=== PATIENT | male | born 1945 | race Caucasian/White ===

== ENCOUNTER → 2016-09-17 | Outpatient (CLI) | payer OTHER ==
[~2016-09-17] MED LIST: ACID CONTROL20 MG PO; AMOXICILLIN 50500 M1 PO; ASPIR 8181 MG PO; ASPIRIN EC81 M1 PO; ATORVASTATIN CA40 MG PO; BAYER CHEWABLE81 MG PO; CARDURA2 MG PO; CLOTRIMAZOLE-BE15 GM TP; CLOTRIMAZOLE10 GM TOP; COLACE100 MG PO; COUMADIN 3 MG TA3 M1 PO; COUMADIN 4 MG TA4 M1 PO; COUMADIN 5 MG TA5 M1 PO; DYAZIDE PO; FLOMAX0.4 MG PO; GLUCOPHAGE1000 MG PO; GLYBURIDE 5 MG T5 M1 PO; GLYCOLAX POWDER17 G1 PO; GLYCOLAX255 GM PO; HYDROCODON-ACE1 EAC9 PO; HYDROCODONE-APA1 TA1 PO; KEFLEX500 MG PO; KLOR-CON 1010 MEQ PO; LACTINEX CHEWA1 EACH PO; LANTUS SUBQ; LANTUS100 UNIT/M SUBQ; LASIX 20 MG TAB20 MG PO; LEVEMIR SUBQ; LIORESAL 10 MG10 MG PO; LIPITOR 20 MG T20 M1 PO; LISINOPRIL10 MG PO; LISINOPRIL20 MG PO; LOVENOX INJ; METFORMIN HCL500 MG PO; MUCINEX TA600 MG/TA2 PO; NAPROSYN500 MG PO; NORCO 5-325 TA1 EACH PO; NOVOLOG100 UNIT/1 SUBQ; NYAMYC15 GM TOP; OXYCODONE HCL 55 MG PO; PACERONE 200 M200 M1 PO; PAIN RELIEVER325 MG PO; PEPCID20 MG PO; PERCOCET PO; PLAVIX 75 MG TA75 MG PO; PREDNISONE 20 M20 MG PO; PROSCAR 5MG TABL5 MG PO; PROTONIX40 M1 PO; SENOKOT-S1 TA1 PO; SIMVASTATIN40 MG PO; TESSALON PERLE100 MG PO; TESTOSTERO200 MG/1 M IM; TYLENOL325 MG PO; VITAMIN D1000 UNI1 PO; VITAMIN D32000 UNIT PO; ZANTAC 150MG T150 M1 PO; ZANTAC 150MG T150 MG PO; [UNRECOGNIZED DRUG - OTHER] TOP
== END ==
LOC: HYPER 02-11 11:53
DX: L89.893 Pressure ulcer of other site, stage 3 (principal); E11.621 Type 2 diabetes mellitus with foot ulcer; L97.511 Non-pressure chronic ulcer of other part of right foot limited to breakdown of skin; E11.40 Type 2 diabetes mellitus with diabetic neuropathy, unspecified; E11.51 Type 2 diabetes mellitus with diabetic peripheral angiopathy without gangrene; E11.22 Type 2 diabetes mellitus with diabetic chronic kidney disease; I12.9 Hypertensive chronic kidney disease with stage 1 through stage 4 chronic kidney disease, or unspecified chronic kidney disease; N18.9 Chronic kidney disease, unspecified; I48.91 Unspecified atrial fibrillation; E78.5 Hyperlipidemia, unspecified; J44.9 Chronic obstructive pulmonary disease, unspecified; Z86.19 Personal history of other infectious and parasitic diseases; Z79.4 Long term (current) use of insulin; Z79.84 Long term (current) use of oral hypoglycemic drugs; Z86.73 Personal history of transient ischemic attack (TIA), and cerebral infarction without residual deficits; Z87.01 Personal history of pneumonia (recurrent); Z89.421 Acquired absence of other right toe(s); Z87.891 Personal history of nicotine dependence; Z72.89 Other problems related to lifestyle

== ENCOUNTER → 2016-10-15 | Outpatient (CLI) | payer OTHER | LOC: HYPER 06:50 | DX: L89.893 Pressure ulcer of other site, stage 3 (principal); E11.621 Type 2 diabetes mellitus with foot ulcer; L97.511 Non-pressure chronic ulcer of other part of right foot limited to breakdown of skin; E11.51 Type 2 diabetes mellitus with diabetic peripheral angiopathy without gangrene; I48.91 Unspecified atrial fibrillation; E78.5 Hyperlipidemia, unspecified; E11.40 Type 2 diabetes mellitus with diabetic neuropathy, unspecified; J44.9 Chronic obstructive pulmonary disease, unspecified; E11.22 Type 2 diabetes mellitus with diabetic chronic kidney disease; I12.9 Hypertensive chronic kidney disease with stage 1 through stage 4 chronic kidney disease, or unspecified chronic kidney disease; N18.9 Chronic kidney disease, unspecified; Z79.4 Long term (current) use of insulin; Z79.84 Long term (current) use of oral hypoglycemic drugs; Z86.73 Personal history of transient ischemic attack (TIA), and cerebral infarction without residual deficits; Z87.01 Personal history of pneumonia (recurrent); Z86.19 Personal history of other infectious and parasitic diseases; Z89.421 Acquired absence of other right toe(s); Z87.891 Personal history of nicotine dependence; Z72.89 Other problems related to lifestyle ==

== ENCOUNTER → 2016-11-12 | Outpatient (CLI) | payer OTHER | LOC: HYPER 07:04 | DX: E11.621 Type 2 diabetes mellitus with foot ulcer (principal); L97.511 Non-pressure chronic ulcer of other part of right foot limited to breakdown of skin; E11.51 Type 2 diabetes mellitus with diabetic peripheral angiopathy without gangrene; L72.8 Other follicular cysts of the skin and subcutaneous tissue; E11.21 Type 2 diabetes mellitus with diabetic nephropathy; E11.22 Type 2 diabetes mellitus with diabetic chronic kidney disease; I12.9 Hypertensive chronic kidney disease with stage 1 through stage 4 chronic kidney disease, or unspecified chronic kidney disease; N18.9 Chronic kidney disease, unspecified; Z79.4 Long term (current) use of insulin; Z79.84 Long term (current) use of oral hypoglycemic drugs; I48.91 Unspecified atrial fibrillation; Z86.73 Personal history of transient ischemic attack (TIA), and cerebral infarction without residual deficits; J44.9 Chronic obstructive pulmonary disease, unspecified; Z86.19 Personal history of other infectious and parasitic diseases; Z89.421 Acquired absence of other right toe(s); Z87.891 Personal history of nicotine dependence; Z72.89 Other problems related to lifestyle ==

== ENCOUNTER 2016-12-06 12:14 | Emergency (ER) | payer OTHER ==
[~2016-12-06] VITALS: Ht 190.5 cm; Wt 115.7 kg
--- NOTE | ~2016-12-06 | EKG ---
[address] [place] [address] ELECTROCARDIOGRAM REPORT Name: KATIE HAUSER [id number] Admission: 12/06/16 Attend Phys: Discharge: 12/06/16 Date of : 47 Report #: [id number] THIS REPORT FOR: //name// [facility] ED Test Date: 2016-12-06 Test Time: 12:34:20 Pat Name: KATIE HAUSER Department: Room: Gender: Site Controller: ALEX : 1945 Requested By: Milana Ricketts Order Number: [id number] MD: Amanuel Butler Measurements Intervals Hallie Rate: 109 P: -62 ME: 177 QRS: -32 QRSD: 98 T: 39 QT: 330 QTc: 445 Interpretive Statements Sinus or ectopic atrial tachycardia Left axis deviation Abnormal R-wave progression, early transition Minimal ST depression, anterior leads Compared to ECG 10/02/2015 15:29:47 ST (T wave) deviation now present Sinus rhythm no longer present First degree AV block no longer present Electronically Signed On 12-06-2016 15:23:55 CDT by Amanuel Butler [email or web address] <ELECTRONICALLY SIGNED> By: Amanuel Butler MD 12/06/16 1523 1234 1234 Amanuel Butler MD /EPI
[2016-12-06 13:38] LABS: HEMATOCRIT 44.2 % (42.0-52.0); HEMOGLOBIN 14.2 gm/dL (14.0-18.0); MCH 27.3 pg (26.0-34.0); MCV 85.2 fL (80.0-100.0); PLATELET COUNT 182 thou/uL (150-400); RBC 5.19 mil/uL (4.50-6.00); RDW 15.9 % (10.5-14.5); WBC 12.9 thou/uL (4.0-11.0)
[2016-12-06 13:44] LABS: ANION GAP 11 mmol/L (7-16); BUN 25 mg/dL (7-18); CALCIUM 9.8 mg/dL (8.5-10.1); CHLORIDE 101 mmol/L (98-107); CO2 27 mmol/L (21-32); CREATININE 1.3 mg/dL (0.7-1.3); GLUCOSE 274 mg/dL (74-106); POTASSIUM 4.6 mmol/L (3.5-5.1); SODIUM 139 mmol/L (136-145)
[2016-12-06 13:47] LABS: MANUAL DIFF YES
[2016-12-06 13:53] LABS: TROPONIN-I < 0.04 ng/mL (<0.04-0.07)
[2016-12-06 14:10] LABS: ABSOLUTE NEUTROPHILS 10.6 thou/uL (1.4-8.2); TOTAL CELL COUNT 100
== END 2016-12-06 15:15 | disposition home or self-care (01) ==
LOC: ER 12:14
PROVIDERS: Emergency Medicine
DX: I95.1 Orthostatic hypotension (principal); R55 Syncope and collapse; I10 Essential (primary) hypertension; E78.00 Pure hypercholesterolemia, unspecified; I48.91 Unspecified atrial fibrillation; M19.90 Unspecified osteoarthritis, unspecified site; E11.9 Type 2 diabetes mellitus without complications; E11.40 Type 2 diabetes mellitus with diabetic neuropathy, unspecified; E11.51 Type 2 diabetes mellitus with diabetic peripheral angiopathy without gangrene; M86.60 Other chronic osteomyelitis, unspecified site; F10.99 Alcohol use, unspecified with unspecified alcohol-induced disorder; Z86.11 Personal history of tuberculosis; Z79.4 Long term (current) use of insulin; Z79.01 Long term (current) use of anticoagulants; Z86.73 Personal history of transient ischemic attack (TIA), and cerebral infarction without residual deficits; Z87.891 Personal history of nicotine dependence

== ENCOUNTER → 2016-12-24 | Outpatient (CLI) | payer OTHER | LOC: HYPER 07:05 | DX: E11.621 Type 2 diabetes mellitus with foot ulcer (principal); L89.893 Pressure ulcer of other site, stage 3; L97.511 Non-pressure chronic ulcer of other part of right foot limited to breakdown of skin; E11.51 Type 2 diabetes mellitus with diabetic peripheral angiopathy without gangrene; Z79.4 Long term (current) use of insulin; E11.21 Type 2 diabetes mellitus with diabetic nephropathy; Z79.84 Long term (current) use of oral hypoglycemic drugs; E11.22 Type 2 diabetes mellitus with diabetic chronic kidney disease; I12.9 Hypertensive chronic kidney disease with stage 1 through stage 4 chronic kidney disease, or unspecified chronic kidney disease; N18.9 Chronic kidney disease, unspecified; E78.5 Hyperlipidemia, unspecified; Z87.01 Personal history of pneumonia (recurrent); Z86.73 Personal history of transient ischemic attack (TIA), and cerebral infarction without residual deficits; Z87.891 Personal history of nicotine dependence ==

== ENCOUNTER 2019-09-22 11:59 | Emergency (ER) | payer OTHER ==
[~2019-09-22] VITALS: Ht 198.1 cm; Wt 134.7 kg
[2019-09-22 15:16] LABS: ABSOLUTE NEUTROPHILS 4.7 thou/uL (1.4-8.2); EOSINOPHILS 4.1 % (0.0-3.0); HEMATOCRIT 39.9 % (42.0-52.0); HEMOGLOBIN 12.9 gm/dL (14.0-18.0); LYMPHOCYTES 33.5 % (24.0-44.0); MCH 28.5 pg (26.0-34.0); MCHC 32.3 g/dL (28.0-37.0); MCV 88.1 fL (80.0-100.0); MONOCYTES 8.2 % (1.0-8.0); PLATELET COUNT 205 thou/uL (150-400); POLYS 53.2 % (36.0-66.0); RBC 4.53 mil/uL (4.50-6.00); RDW 14.9 % (10.5-14.5); WBC 8.7 thou/uL (4.0-11.0)
[2019-09-22] MEDS ORDERED: BACTRIM DS TAB1 EAC1 PO (15:28)
[2019-09-22 15:39] VITALS: BP 154/81
== END 2019-09-22 15:39 | disposition home or self-care (01) ==
LOC: ER 11:59
PROVIDERS: Nurse Practitioner
DX: L03.115 Cellulitis of right lower limb (principal); E11.621 Type 2 diabetes mellitus with foot ulcer; L97.519 Non-pressure chronic ulcer of other part of right foot with unspecified severity; E11.40 Type 2 diabetes mellitus with diabetic neuropathy, unspecified; E11.51 Type 2 diabetes mellitus with diabetic peripheral angiopathy without gangrene; E78.5 Hyperlipidemia, unspecified; I10 Essential (primary) hypertension; I48.91 Unspecified atrial fibrillation; M19.90 Unspecified osteoarthritis, unspecified site; Z86.73 Personal history of transient ischemic attack (TIA), and cerebral infarction without residual deficits; Z79.899 Other long term (current) drug therapy; Z79.4 Long term (current) use of insulin; Z79.82 Long term (current) use of aspirin; Z79.01 Long term (current) use of anticoagulants; Z88.8 Allergy status to other drugs, medicaments and biological substances; Z87.891 Personal history of nicotine dependence; Z89.421 Acquired absence of other right toe(s)

== ENCOUNTER → 2019-10-04 | Outpatient (CLI) | payer OTHER ==
[~2019-10-04] MED LIST changes: +BACTRIM DS TAB1 EAC1 PO; +CARVEDILOL3.125 MG PO; +ELIQUIS5 MG PO; +NOVOLIN N100 UNIT/1 SUBQ; +NOVOLIN R100 UNIT/1 SUBQ
== END ==
LOC: HYPER 08:59 → CAT 08:59 → HYPER 15:22
PROVIDERS: ATTEND Emergency Medicine Emergency Medical Services
DX: E11.621 Type 2 diabetes mellitus with foot ulcer (principal); L97.514 Non-pressure chronic ulcer of other part of right foot with necrosis of bone; L84 Corns and callosities; L60.3 Nail dystrophy; E11.40 Type 2 diabetes mellitus with diabetic neuropathy, unspecified; E11.51 Type 2 diabetes mellitus with diabetic peripheral angiopathy without gangrene; E78.5 Hyperlipidemia, unspecified; I48.91 Unspecified atrial fibrillation; I10 Essential (primary) hypertension; J44.9 Chronic obstructive pulmonary disease, unspecified; M20.41 Other hammer toe(s) (acquired), right foot; M20.42 Other hammer toe(s) (acquired), left foot; M24.571 Contracture, right ankle; Z86.73 Personal history of transient ischemic attack (TIA), and cerebral infarction without residual deficits; Z86.31 Personal history of diabetic foot ulcer; Z79.84 Long term (current) use of oral hypoglycemic drugs; Z87.891 Personal history of nicotine dependence

== ENCOUNTER → 2019-10-05 | Outpatient (CLI) | payer OTHER ==
[~2019-10-05] MED LIST changes: -CARVEDILOL3.125 MG PO; -ELIQUIS5 MG PO; -NOVOLIN N100 UNIT/1 SUBQ; -NOVOLIN R100 UNIT/1 SUBQ
== END ==
LOC: SJCVCIMAG
PROVIDERS: ATTEND Podiatrist Foot & Ankle Surgery
DX: I70.201 Unspecified atherosclerosis of native arteries of extremities, right leg (principal); Z95.820 Peripheral vascular angioplasty status with implants and grafts

== ENCOUNTER 2019-10-12 06:06 | Inpatient (IN) | payer OTHER ==
[~2019-10-12] VITALS: Ht 198.1 cm; Wt 137.4 kg
--- NOTE | ~2019-10-12 | HC ---
[facility] [place] [address] CONSULTATION Name: KATIE HAUSER Room #: 440- ADM IN M.R.#: [id number] Admission: 10/12/19 Attend Phys: Puja Carroll MD Discharge: Date of : 47 Report #: [id number] THIS REPORT FOR: cc: Gerardo Roberts MD, Michael B. MD Smithson, David G. 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 He utilizes an AFO. Primarily utilizing a power wheelchair to get around for longer distances. He has had problems with right fifth metatarsal osteomyelitis and is now status post amputation, 10/12/2019. He is limited to nonweightbearing for approximately 3 weeks. He is on IV antibiotics. We are seeing him in rehabilitation medicine consultation. PAST MEDICAL HISTORY: As noted above. He also has a prior history of hypertension, hyperlipidemia, diabetes mellitus, permanent pacemaker, and peripheral neuropathy. HABITS: No history of tobacco, alcohol or drug abuse. MEDICATIONS: Please see the full medication listing. ALLERGIES: MOTRIN. SOCIAL HISTORY: Lives in a house alone. No steps. There is a ramp to get in. Used a walker for short distances, could transfer back and forth a couple of steps to get in the bed into the wheelchair and has a powered wheelchair. Grandson assists with bathing. REVIEW OF SYSTEMS: Did not offer any current complaints of chest pain, shortness of breath or abdominal discomfort. PHYSICAL EXAMINATION: GENERAL: A 74-year-old white male in no obvious distress. He is alert, pleasant, oriented. HEENT: Appeared to be benign. Cranial nerves were intact. VITAL SIGNS: Temperature 98.5, pulse 70, respirations 16, blood pressure 132/46. He was able to express his wants and needs. EXTREMITIES: Does have some mild residual right upper extremity weakness, probably a grade 4-/5. Right lower extremity has the dressing in place. I was [facility] [address] [place] [address] CONSULTATION Name: KATIE HAUSER Room #: 440-P ADM IN M.R.#: [id number] Admission: 10/12/19 Attend Phys: Puja Carroll MD Discharge: Date of : 47 Report #: [id number] unable to assess his right ankle strength, but he does have the old AFO. He has functional range of motion of the left upper and left lower extremity. Strength is probably a grade 4+/5. He is sit to stand, max assist. ASSESSMENT: A 74-year-old white male with the following problem list: 1. Right fifth metatarsal osteomyelitis, status post amputation on 10/12/[address] Camarena is limited to nonweightbearing right lower extremity. Continues on IV antibiotics. 2. History of cerebrovascular accident ____ with residual right hemiparesis. 3. Hypertension. 4. Diabetes mellitus. 5. Permanent pacemaker. 6. Hyperlipidemia. 7. Peripheral neuropathy. PLAN: Would agree with retirement facility options as you are looking into. He needs another couple of weeks of nursing care and IV antibiotics before he can be considered for a potential weightbearing upgrade by Podiatry depending upon how he heals. Noted to be on meropenem. By: 1147 0111 Frantz Bach MD /nt
[~2019-10-12 06:06] MED LIST changes: +CARVEDILOL3.125 MG PO; +ELIQUIS5 MG PO; +NOVOLIN N100 UNIT/1 SUBQ; +NOVOLIN R100 UNIT/1 SUBQ
[2019-10-12 07:21] LABS: CALCIUM 8.6 mg/dL (8.5-10.1); CREATININE 1.2 mg/dL (0.7-1.3); POTASSIUM 4.3 mmol/L (3.5-5.1)
[2019-10-12 07:27] LABS: ALBUMIN 3.4 g/dL (3.4-5.0); TOTAL BILIRUBIN 0.3 mg/dL (0.2-1.0); TOTAL PROTEIN 6.5 g/dL (6.4-8.2)
[2019-10-12 08:05] VITALS: BP 155/77
[2019-10-12 09:35] VITALS: BP 109/61
[2019-10-12 10:07] LABS: ABSOLUTE NEUTROPHILS 4.6 thou/uL (1.4-8.2); EOSINOPHILS 4.1 % (0.0-3.0); HEMATOCRIT 40.6 % (42.0-52.0); HEMOGLOBIN 13.3 gm/dL (14.0-18.0); LYMPHOCYTES 29.3 % (24.0-44.0); MCH 28.8 pg (26.0-34.0); MCHC 32.8 g/dL (28.0-37.0); MCV 87.6 fL (80.0-100.0); MONOCYTES 8.8 % (1.0-8.0); PLATELET COUNT 170 thou/uL (150-400); POLYS 56.8 % (36.0-66.0); RBC 4.64 mil/uL (4.50-6.00); RDW 14.9 % (10.5-14.5); WBC 8.1 thou/uL (4.0-11.0)
--- NOTE | 2019-10-12 14:46 | NUR ---
assessment: CM REVIEWED CHART AND SPOKE WITH PATIENT. PT WAS ADMITTED FOR A RIGHT GREAT TOE AMPUTATION. PT REPORTS THAT HE LIVES IN A HOUSE ALONE. PT REPORTS THAT HE CURRENTLY HAS [facility] THAT COMES OUT TO ASSIST HIM. CM CONTACTED [facility] AND CONFIRMED THIS HOWEVER THEY STATE PATIENT IS AN [employer] PATIENT AND THEY ARE NO LONGER ACCEPTING [employer] CONTRACTS AND THAT THEY ARE UNABLE TO ACCEPT PATIENT BACK FOR HH SERVICES. PT HAD AMPUTATION TODAY AND IS TO WORK WITH THERAPIES TOMORROW. PT REPORTS HE HAS BEEN TO [facility] IN THE PAST AND PENDING HOW HE DOES WITH THERAPY IS INTERESTED IN [facility]. CM NOTIFIED [facility] IF PATIENT QUALIFIES OTHERWISE IF PATIENT IS NEEDING HH ANOTHER AGENCY WILL HAVE TO BE CONTACTED. PT REPORTS HE HAS A WALKER AND WHEELCHAIR AT HOME AND HIS GRANDSON COMES OVER TO HELP ASSIST HIM WITH SHOWERS. CM WILL CONTINUE TO FOLLOW TO ASSIST NEEDED.
[2019-10-12 15:02] VITALS: BP 106/63
--- NOTE | 2019-10-12 18:58 | NUR ---
Assumed care of pt. from PACU at 1000. There was in issue in communication between Admin. and Medical Staff and pt. was not admitted or moved in computer to unit for 2 hours. Pt. was admitted after problem was resolved. Multiple calls were made at this time by myself to Admin to try to resolve the situation. Pt. food tray was also not delivered until after several calls to dietary as well. Pt. was calm and cooperative throughout the entire process. Fall precautions in place.
[2019-10-12 20:04] VITALS: BP 108/47
--- NOTE | 2019-10-13 02:37 | NUR ---
ASSUMED PT CARE AT APPROX 1900'PT DENIED PAIN SO FAR.DRSG TO HIS R FOOT C/D/I.PT CONT ON IV ABX ORDERED.BG MONITORED .URINAL AT BEDSIDE.PT SLEEPING ON HIS BED AT THIS TIME.FALL PRECAUTIONS IN PLACE,CALL LIGHT WITHIN REACH.
[2019-10-13 04:02] VITALS: BP 101/43
[2019-10-13 07:50] VITALS: BP 107/54
--- NOTE | 2019-10-13 08:00 | EKG ---
[facility] [place] [address] ELECTROCARDIOGRAM REPORT Name: KATIE HAUSER Room #: 440-P ADM IN M.R.#: [id number] Admission: 10/12/19 Attend Phys: Puja Carroll MD Discharge: Date of : 47 Report #: [id number] THIS REPORT FOR: cc: Gerardo Roberts MD, Michael B. MD Lundgren,Anshu Bradshaw MD [facility] ~ THIS REPORT FOR: //name// [facility] Test Date: 2019-10-12 Test Time: 06:52:07 Pat Name: KATIE HAUSER Department: Room: [facility] Gender: M Professor Of Industrial Technology: CALEB : 1945 Requested By: Rachael Mendez Order Number: [id number] MD: Anshu Coffey Measurements Intervals [place] Rate: 70 P: SC: 223 QRS: -52 QRSD: 134 T: 68 QT: 409 QTc: 442 Interpretive Statements Atrial-paced rhythm Left bundle branch block Compared to ECG 12/06/2016 12:34:20 Atrial pacing is now present QRS duration has widened Electronically Signed On 10-13-2019 7:59:58 CDT by Anshu Coffey [email or web address] <ELECTRONICALLY SIGNED> By: Anshu Coffey MD, [facility] 10/13/19 0759 0652 0652 Anshu Coffey MD, [facility] /EPI
--- NOTE | 2019-10-13 14:42 | NUR ---
[facility] INDICATED THEY WOULD ASSESS PT THIS DAY BUT THAT IT ISN'T LIKELY THAT [employer] WILL GIVE AUTH. CM MET WITH PT AT BEDSIDE THIS DAY AND INDICATED THE ABOVE. CM PROVIED HIM A LIST OF SKILLED FACILITIES. PT IS REVIEWING TO SEE WHERE HE WANTS REFERRALS SENT. CM TO FOLLOW INDICATED WITH DC PLANNING.
--- NOTE | 2019-10-13 16:09 | NUR ---
CM PROVIDED [employer] SNF LIST FOR PT TO REVIEW. HE INDICATED HE DIDN'T LIKE ANY OF THE FACILTIES IN NETWORK AND THAT HE WOULD PREFER TO RETURN HOME ONCE MEDICALLY STABLE. CM TO NOTIFY HOSPITALIST OF PREFERENCE. STILL AWAITING PT EVALS. CM TO LOOK FOR HOME HEALTH PROVIDER IN THE EVENT PT COULD BE MEDIALLY STALBE TO DC HOME IN THE NEAR FURTURE.
--- NOTE | 2019-10-13 16:51 | NUR ---
FAXED REFERRAL TO [facility] HH SPOKE WITH LIVAN IN INTAKE SHE RECEIVED REFERRAL AND WILL ACCEPT AT DISCHARGE. DP TO FOLLOW.
[2019-10-13 16:52] VITALS: BP 107/59
[2019-10-13 17:19] VITALS: BP 105/46
--- NOTE | 2019-10-13 18:31 | NUR ---
PT IS AOX4, VSS, PAIN CONTROLLED WITH ORAL ANALGESIC. PT REPORTS HE WANTS TO HAVE A BM. NURSE GAVE MIRALAX ORDERED. PT REPORTS HE WILL LAY OFF NARCOTIC AND USE TYLENOL PRN FOR PAIN. PT CALL APPROPRIATELY. RIGHT FOOT DRESSING CDI, ELEVATED ON PILLOW. CALL LIGHT IN REACH, WILL CONTINUE TO MONITOR.
--- NOTE | 2019-10-14 02:42 | NUR ---
ASSUMED CARE OF PT AT 1900. PT IS A/O X4. DRSGS TO TOE IS C/D/I. C/O CONSTIPATION. PRN STOOL SOFTNER GIVEN DIRECTED. C/O BUT REFUSES PAIN MEDICATION STATING HE DOESN'T WANT TO MAKE HIS CONSTIPATION PROBLEM MORE SEVERE. FALL PRECAUTIONS ARE IN PLACE, CALL LIGHT IS WITHIN REACH. WILL CONTINUE TO MONITOR.
[2019-10-14 03:50] VITALS: BP 118/43
[2019-10-14 08:09] VITALS: BP 100/47
--- NOTE | 2019-10-14 11:24 | NUR ---
CM FOLLOWED UP WITH PT AT BEDSIDE THIS DAY. PT INDICATED HE WAS RECEPTIVE TO POST ACUTE CARE STAY. ASKED THAT REFERRAL BE SENT TO [facility]. REFERRAL SENT. WILL NEED THEM TO ACCEPT MEDICALLY AND SUB,IT FOR [employer] AUTH. NO LIKELY IT WAS BE RECIEVED UNTIL BEGINING OF NEXT WEEK.
--- NOTE | 2019-10-14 14:00 | NUR ---
VASCULAR ACCESS CONSULTED FOR PICC LINE. PT'S LABS,MEDS,HX,ORDER AND CONSENT VERIFIED. DISCUSSED BENEFITS AND RISK OF PICC WITH PT,VERBALIZED UNDERSTANDING. GERMAN LOVING WAS WIDELY PATENT WITH USG 4FR SL PICC TRIMMED TO 46CM INSERTED TO 0CM STAT CXR ORDERED. PT TOLERATED WELL.
--- NOTE | 2019-10-14 14:45 | HC ---
[facility] [place] [address] CONSULTATION Name: KATIE HAUSER Room #: 440-P ADM IN M.R.#: [id number] Admission: 10/12/19 Attend Phys: Puja Carroll MD Discharge: Date of : 47 Report #: [id number] THIS REPORT FOR: cc: Gerardo Roberts MD,Angel Moon MD, MD ~ CC: Puja Marie DATE OF SERVICE: 10/13/2019 PERSONAL PHYSICIANS: Dr. Gerardo Roberts and Nikki Marie DPM. CHIEF COMPLAINT: Right foot wound. HISTORY OF PRESENT ILLNESS: This is a 73-year-old white male who has been a patient of mine in the remote past, who has a history of diabetes and peripheral vascular disease, who is now status post right fifth ray amputation secondary to a chronic ulcer with underlying osteomyelitis to the right fifth toe. Dr. Marie performed the surgery. The patient also states he has a small other ulcer on the other toes as well. The patient denies any other associated concerns at this time. The patient states that the wound on his right foot had progressed over the past 3 weeks. PAST MEDICAL HISTORY: Significant for type 2 diabetes, peripheral neuropathy, peripheral vascular disease with previous stent placement with previous toe amputations. CURRENT MEDICATIONS: Multiple, I reviewed the patient's medication list. DRUG ALLERGIES: IBUPROFEN. SOCIAL HISTORY: The patient has a history of heavy tobacco and alcohol use. Lives independently. FAMILY HISTORY: Not pertinent to current medical condition. REVIEW OF SYSTEMS: CONSTITUTIONAL: The patient denies fevers or chills. NEUROLOGIC: The patient denies numbness, tingling or isolated weakness in arms or legs. EYES: No complaints. ENT: No complaints. CARDIAC: The patient denies chest pain or palpitations. Does have chronic lower extremity edema. [facility] [address] [place] [address] CONSULTATION Name: KATIE HAUSER Room #: 440-P [facility] IN .R.#: [id number] Admission: 10/12/19 Attend Phys: Puja Carroll MD Discharge: Date of : 47 Report #: [id number] RESPIRATORY: The patient denies shortness of breath, cough or wheezes. GASTROINTESTINAL: The patient denies nausea, vomiting, abdominal pain. GENITOURINARY: The patient denies urgency or frequency. MUSCULOSKELETAL: No complaints. SKIN: There are chronic wounds to the right toes as well as surgical wound to the right fifth ray resection site. PHYSICAL EXAMINATION: VITAL SIGNS: The patient is afebrile, pulse is 70, BP 100/47. GENERAL: This is an alert and oriented x 3, pleasant white male, who is in no obvious distress. HEENT: Normocephalic, atraumatic. Mucous membranes are moist. Pupils are round. Sclerae are white. NECK: Supple, nontender. LUNGS: Clear. HEART: Regular. ABDOMEN: Obese, soft, nontender. EXTREMITIES: The patient moves all extremities without difficulty. Evaluation of right foot reveals surgical wound to the right foot with a dressing, which is clean, dry and intact. There are no signs of erythema, warmth or cellulitis to the right foot. Evaluation of left foot reveals a small ulcer with a dry eschar on the left great toe. Bilateral heels are intact. NEUROLOGIC: Cranial nerves 2-12 grossly intact. Motor and sensory grossly intact. LABORATORY DATA: White count 8.1, hemoglobin 13.3. Sed rate is 15, BUN 22, creatinine 1.2. CRP is 3.2, albumin 3.4. IMPRESSION: 1. Osteomyelitis, right fifth toe, now status post right fifth ray resection. 2. Vascular ulcer with dry, intact eschar, left great toe. 3. Peripheral arterial disease, status post stent placement. 4. Diabetes mellitus type 2. 5. Hypertension. 6. Congestive heart failure. 7. Chronic obstructive pulmonary disease. 8. Generalized debility. 9. Obesity. 10. History of heavy alcohol and tobacco use in the past. 11. Mild protein-calorie malnutrition with albumin 3.4. PLAN: To the surgical wound, we will do Xeroform, ABD, Kerlix and Alan. This will be changed daily. We will paint Betadine to the left great toe ulcer daily. We will make sure we maximize the [place] [address] CONSULTATION Name: KATIE HAUSER Room #: 440-P ADM IN M.R.#: [id number] Admission: 10/12/19 Attend Phys: Puja Carroll MD Discharge: Date of : 47 Report #: [id number] for healing. We will continue all other current medications including IV antibiotics. We will continue to follow the patient. <ELECTRONICALLY SIGNED> By: Angel Taylor MD 10/14/19 1445 1144 1331 Angel Taylor MD /nt
--- NOTE | 2019-10-14 15:27 | NUR ---
CXR CONFIRMED PICC AT [facility]. PICC RELEASED FOR IMMEDIATE USE PER PROTOCOL TO FISH BR[place]FORD
--- NOTE | 2019-10-14 16:06 | PATH ---
[facility] [address] [place] [address] PATHOLOGY RPT PROCEDURE Name: KATIE AGUILAR Room #: 440-P ADM IN M.R.#: [id number] Admission: 10/12/19 Date of : 47 Discharge: Report #: [id number] Path Case #: [id number] [facility] Accession Number: [id number] . 01 Material submitted: . toe - RIGHT FIFTH RAY. Modifiers: right . 01 Clinical history: . RIGHT FOOT OSTEOMYELITIS DS 10/11 TRANSMETATARSAL AMPUTATION . 02 Diagnosis: Toe, right fifth ray, amputation: - Skin and subcutaneous tissue showing ulceration marked acute inflammation and gangrenous necrosis extending into underlying bone. - Underlying bone showing acute osteomyelitis. - Margin showing viable bone. (IUV:juliet; 10/14/2019) MBR 10/14/2019 1349 Local . 02 Electronically signed: . Lanie Pressley MD, Pathologist NPI- [id number] . 01 Gross description: . The specimen is received in formalin, labeled "Katie Aguilar, right fifth ray". Received is an amputated digit measuring 8.2 x 3.0 x 2.7 cm in greatest dimensions. The bone margin is blunt in appearance, consistent with transection. The bone and soft tissue margins are inked black. The nail is present display in a pale lopez and slightly thickened appearance. On the lateral aspect of the specimen, there is a poorly circumscribed, pink-lopez to necrotic-appearing lesion measuring 2.5 x 2.2 cm, which is 0.2 cm from the closest skin margin. The specimen is submitted representatively as follows: . A1-A2 horizontal cross-sections through lesion to include underlying bone, following decalcification A3 longitudinal cross-section through bone margin, following decalcification. (CAA; 10/12/2019) QA/QA 10/12/2019 1843 Local . 02 Pathologist provided ICD-10: L97.519, L98.9, I96, M86.171 . 02 CPT . 005532, [id number] Specimen Comment: A courtesy copy of this report has been sent to [phone] [place] [address] PATHOLOGY RPT PROCEDURE Name: KATIE AGUILAR Room #: 440-P ADM IN M.R.#: [id number] Admission: 10/12/19 Date of : 47 Discharge: Report #: [id number] Path Case #: [id number] Specimen Comment: Report sent to Performed at: [address], [place], [place] [id number] MD Kirk Garcia MD Phone: [phone] Performed at: [address] [id number] MD Lanie Pressley MD Phone: [phone]
--- NOTE | 2019-10-14 16:43 | NUR ---
[facility] DECLINED ADMISSION LATE THURSDAY AFTERNOON. PT IS LOOKING TO SEE WHERE ELSE HE WANTS REFERRALS SENT. CM TO FOLLOW INDICATED WITH DC PLANNING.
[2019-10-14 17:15] VITALS: BP 100/50
--- NOTE | 2019-10-14 19:32 | NUR ---
Assumed care of pt. at 0700. Pt. is calm and cooperative. He has agreed to go to a skilled facility upon discharge. The wound team changed his dressing today. Fall precuations in place.
[2019-10-14 20:08] VITALS: BP 100/35
--- NOTE | 2019-10-15 06:08 | NUR ---
Pt. rested quietly during the night when checked on during frequent rounds. He offers no complaints of pain. Dressing to his right foot is clean dry and intact.
[2019-10-15 08:35] VITALS: BP 111/49
[2019-10-15 16:54] VITALS: BP 103/45
[2019-10-15 19:42] VITALS: BP 104/46
--- NOTE | 2019-10-15 21:07 | NUR ---
PT IS ALERT XS 4 DRESSING CHANGED TO RIGHT FOOT ORDERED. NOC NURSE ASSISTED SO SHE COULD ASSESS. PT IS COOPERATIVE WITH CARE. BLOOD SUGARS MONITORED AND S/S AND INSULIN ORDERED. PT SAT ON SIDE OF BED TODAY . HAS RIGHT UPPER PICC LINE. PT WILL GO TO REHAB FACILITY FOR STRENGTHENING BEFORE HOME.
--- NOTE | 2019-10-16 02:20 | NUR ---
RECIEVED CARE OF THIS PATIENT AT 1900. PATIENT ALERT AND ORIENTED X4. PATIENT HAS GERMAN SINGLE LUMAN PICC. DRESSING ON R FOOT CHANGED WITH DAY SHIFT. PATIENT HAS 23 SUTURES ON LATERAL ASPECT OF R FOOT. ACCUCHECK WAS 81, NO COVERAGE NEEDED. USES URINAL AND BEDPAN D/T THE FACT HE CAN PUT NO WEIGHT ON THE R FOOT. DENIES PAIN. SLEPT MOST OF THE SHIFT.
[2019-10-16 07:40] VITALS: BP 106/44
--- NOTE | 2019-10-16 16:23 | NUR ---
Assumed care of pt at 0700. Pt a&ox4. Denies pain. Dressing on rt foot changed. NWB on rt foot. Needs rehab placement. Call light within reach. Fall precautions in place. Will continue to monitor.
[2019-10-16 17:23] VITALS: BP 119/46
[2019-10-16 20:05] VITALS: BP 106/50
--- NOTE | 2019-10-17 01:38 | NUR ---
ASSESSED AT START OF SHIFT. PT A&O4 DENIES PAIN. RT FOOT DRESSING INTACT. URINAL AT BEDSIDE. PICC LINE INTACT AND ABX GIVEN. BLOOD SUGAR CHECKED 93 NIGHT TIME SNACKS GIVEN ALONG WITH LONG ACTING INSULIN. PT SLEPT THE REST OF THE SHIFT. FALL PREC IN PLACE AND CALL LIGHT IN REACH WILL CONT TO MONITOR.
--- NOTE | 2019-10-17 09:53 | NUR ---
on-going assessment: CM REVIEWED CHART. KATIE IGNACIO DECLINED PATIENT ON THURSDAY. CM SPOKE WITH PATIENT ABOUT OTHER SNF OPTIONS. HE STATED HE HAS NOT HAD A CHANCE TO REVIEW THE LIST. CM PROVIDED LIST BY PATIENTS SIDE AND HE STATED HE WILL REVIEW IT AND GIVE CM OTHER CHOICES TODAY. CM WILL CONTINUE TO FOLLOW.
[2019-10-17 12:40] VITALS: BP 132/46
--- NOTE | 2019-10-17 13:57 | NUR ---
PT IS A&OX4, VSS, AMBULATION IS BEDREST-NON WT BEARING, RIGHT FOOT DRESSING DONE BY DR BARRIOS, LEFT FOOT DRESSING CLEAN, AND DRY. CARB CONTROL DIET, FALL PRECAUTION IN PLACE, BED ALARM ON, WILL CONTINUE TO MONITOR.
[2019-10-17 17:21] VITALS: BP 101/56
[2019-10-17 20:35] VITALS: BP 123/57
[2019-10-18 03:11] VITALS: BP 108/46
--- NOTE | 2019-10-18 03:26 | NUR ---
ASSESSED AT START 1900. PT A&OX4 DENIES PAIN, N/V. PICC LINE INTACT AND ABX GIVEN. DRESSING IN RT FOOT C/D/I. URINAL AT BEDSIDE. NO FURTHER SIGNS OF DISCOMFORT. FALL PREC IN PLACE. BLODDSUGAR CHECKED WITH COVERAGE. MIDNIGHT SNACKS PROVIDED. WILL CONT TO MONITOR.
[2019-10-18 07:50] VITALS: BP 114/51
--- NOTE | 2019-10-18 08:42 | NUR ---
on-going assessment: LATE ENTRY FROM 10/16 PT REQUESTED TO SPEAK WITH CM. HE REPORTS HIS FAMILY LOOKED INTO [facility] AND DO NOT WANT THAT FACILITY THEY HAVE HEARD BAD THINGS. CM NOTIFIED [facility] TO PLEASE STOP SEEKING AUTH. CM THEN WENT AND PROVIDED PATIENT WITH A NEW SNF LIST WITH MORE PLACES ON IT. PT WANTED A REFERRAL SENT TO [facility] AND [facility]. PT PREFERS [facility] IF THEY CAN ACCEPT IT IS CLOSER FOR HIS DAUGHTER. CM LEFT WITH ADMISSIONS AT [facility] AND AWAITING A CALL BACK.
--- NOTE | 2019-10-18 09:36 | NUR ---
on-going assessment: burke heard back from [facility] and state due to patient needing iv anbx they are unable to meet his needs and cannot accept. burke is still waiting on response from [facility].
--- NOTE | 2019-10-18 14:04 | NUR ---
ON-GOING ASSESSMENT: CM HEARD BACK FROM [facility] AND THEY STATE THEY CANNOT ACCEPT THE PATIENT ON ERTAPENEM 1 G DAILY DUE TO COST. FRANNIE NOTIFIED ATTENDING AND ASKED IF THERE WAS ANY OTHER MEDICATION THAT PATIENT COULD DISCHARGE ON. SHE STATED TO PAGE ID AND CHECK. FRANNIE REACHED OUT TO DR ORDAZ OFFICE AND CONTACTED HIM. DR MUNGUIA CALLED AND STATED PATIENT COULD GO ON CURRENT MEDICATION MEROPENEM 1GM EVERY 8 HOURS IF FACILITY COULD ACCEPT. FRANNIE NOTIFIED CARMEN AT [facility] AND SHE REPORTS THEY CAN ACCEPT WITH THAT MEDICATION AND THEY WILL START TO SEEK INSURANCE AUTH. FRANNIE WILL CONTINUE TO FOLLOW TO ASSIST NEEDED.
--- NOTE | 2019-10-18 18:00 | NUR ---
PT ASSESSED AT START OF SHIFT. DR. SCHUSTER IN EARLY AND CHANGED FOOT DSNG. THERAPY WORKED W/ PT THIS SHIFT. REMINDED PT NO WT BEARING ON RT LEG. EATING AND DRINKING WELL. USING URINAL. PLAN FOR DISCHARGE TO [facility] TOMORROW.
[2019-10-18 19:55] LABS: BASOPHILS 0.7 % (0.0-2.0); EOSINOPHILS 5.1 % (0.0-3.0); HEMATOCRIT 36.9 % (42.0-52.0); HEMOGLOBIN 11.9 gm/dL (14.0-18.0); MCH 28.6 pg (26.0-34.0); MCHC 32.2 g/dL (28.0-37.0); MCV 88.6 fL (80.0-100.0); MONOCYTES 8.9 % (1.0-8.0); PLATELET COUNT 161 thou/uL (150-400); POLYS 53.3 % (36.0-66.0); RBC 4.16 mil/uL (4.50-6.00); RDW 15.6 % (10.5-14.5); WBC 7.5 thou/uL (4.0-11.0)
[2019-10-18 20:19] LABS: ALBUMIN 2.5 g/dL (3.4-5.0); CALCIUM 8.6 mg/dL (8.5-10.1); CREATININE 1.3 mg/dL (0.7-1.3); MAGNESIUM 1.6 mg/dL (1.8-2.4); POTASSIUM 4.2 mmol/L (3.5-5.1); TOTAL BILIRUBIN 0.3 mg/dL (0.2-1.0); TOTAL PROTEIN 6.2 g/dL (6.4-8.2)
[2019-10-18 21:40] VITALS: BP 103/54
[2019-10-19 03:30] VITALS: BP 96/53
--- NOTE | 2019-10-19 03:40 | NUR ---
ASSESSED AT START OF SHIFT. PT AOX4 DENIES PAIN, N/V. DRESSING IN RT FOOT C/D/I. IV ABX GIVEN. PT NWB IN RT FOOT. FALL PREC IN PLACE AND NIGHT TIME SNACKS PROVIDED. PT ANTICIPATING DC TOMORROW WILL CONT TO MONITOR
[2019-10-19 06:24] LABS: CALCIUM 7.8 mg/dL (8.5-10.1); CREATININE 0.7 mg/dL (0.7-1.3); MAGNESIUM 1.8 mg/dL (1.8-2.4); POTASSIUM 3.6 mmol/L (3.5-5.1)
--- NOTE | 2019-10-19 12:37 | 2DMMODE ---
[facility] [place] [address] 2 D/M-MODE ECHOCARDIOGRAM Name: KATIE HAUSER Room #: 440-P ADM IN M.R.#: [id number] Admission: 10/12/19 Attend Phys: Puja Carroll MD Discharge: Date of : 47 Report #: [id number] THIS REPORT FOR: cc: Gerardo Roberts MD, Michael B. MD Park, Jin S. MD ~ APPROVED REPORT Study performed: 10/19/2019 11:42:46 EXAM: Comprehensive 2D, Doppler, and color-flow Echocardiogram Patient Location: Bedside Room #: 440 Status: routine BSA: 2.67 HR: 70 bpm BP: 107/52 mmHg Rhythm: NSR Other Information Study Quality: Adequate Indications New onset cariomegaly on CXR. Hx: Afib, pacemaker, HTN, HLP, Dm, CVA, PVD, morbid obesity. 2D Dimensions RVDd: 38.42 mm IVSd: 12.00 (7-11mm) LVOT Diam: 23.09 (18-24mm) LVDd: 51.46 mm PWd: 12.49 (7-11mm) Ascending Ao: 40.71 (22-36mm) LVDs: 35.66 (25-40mm) Aortic Root: 42.39 mm Volumes Left Atrial Volume (Systole) Single Plane 4CH: 42.75 mL Single Plane 2CH: 61.00 mL LA ESV Index: 20.00 mL/m2 Aortic Valve AoV Peak Willie.: 1.55 m/s AO Peak Gr.: 9.63 mmHg LVOT Max P.13 mmHg LVOT Max V: 0.89 m/s CARIDAD Vmax: 2.39 cm2 [facility] [address] [place] [address] 2 D/M-MODE ECHOCARDIOGRAM Name: KATIE HAUSER Room #: [facility] IN ..#: [id number] Admission: 10/12/19 Attend Phys: Kwaku Fernandez Discharge: Date of : 47 Report #: [id number] Mitral Valve E/A Ratio: 0.8 MV Decel. Time: 266.60 ms MV E Max Willie.: 0.56 m/s MV A Willie.: 0.71 m/s MV PHT: 77.31 ms IVRT: 83.04 ms Pulmonary Valve PV Peak Willie.: 1.01 m/s PV Peak Gr.: 4.06 mmHg Pulmonary Vein P Vein S: 0.39 m/s P Vein A: 0.35 m/s P Vein D: 0.29 m/s P Vein A Dur.: 143.0 msec P Vein S/D Ratio: 1.34 Tricuspid Valve TR Peak Willie.: 2.44 m/s TR Peak Gr.: 24.00 mmHg Left Ventricle The left ventricle is normal size. There is normal LV segmental wall motion. Mild concentric left ventricular hypertrophy. The left ventricular systolic function appears normal. LVEF is 55-60%. Mild diastolic dysfunction is present (impaired relaxation pattern). Right Ventricle The right ventricle is normal size. The right ventricular systolic function is normal. Pacemaker lead is present in the right ventricle. Atria The left atrium size is normal. The right atrium size is normal. Aortic Valve Aortic valve is calcified but has adequate excursion. No aortic regurgitation is present. Mitral Valve The mitral valve is normal in structure. Trace to mild mitral regurgitation. No evidence of mitral valve stenosis. Tricuspid Valve The tricuspid valve is normal in structure. Trace tricuspid [facility] [address] [place] [address] 2 D/M-MODE ECHOCARDIOGRAM Name: KATIE HAUSER Room #: [address] [place] [address] IN M.R.#: [id number] Admission: 10/12/19 Attend Phys: Kwaku Fernandez Discharge: Date of : 47 Report #: [id number] regurgitation. Estimated PAP is 24mmHg plus the RA pressure. Pulmonic Valve The pulmonary valve is normal in structure. Mild pulmonic regurgitation. Great Vessels Aortic root is dilated at 4.3cm. Ascending aorta is dilated at 4.1cm. IVC is not well visualized. Pericardium There is no pericardial effusion. <Conclusion> The left ventricle is normal size. Mild concentric left ventricular hypertrophy. The left ventricular systolic function appears normal. Mild diastolic dysfunction is present (impaired relaxation pattern). The right ventricle is normal size. Pacemaker lead is present in the right ventricle. The left atrium size is normal. Aortic valve is calcified but has adequate excursion. Trace to mild mitral regurgitation. Trace tricuspid regurgitation. Estimated PAP is 24mmHg plus the RA pressure. <ELECTRONICALLY SIGNED> By: Freddy Butler MD 10/19/19 1237 [id number] [id number] Freddy Butler MD /INF
[2019-10-19 13:43] VITALS: BP 107/52
--- NOTE | 2019-10-19 13:56 | NUR ---
PT IS A&OX4, VSS. PT CAN NOT BEAR WT ON RIGHT FOOT. DOPPLER WAS DONE ON PT TODAY, AND WOUND CARE SAW THE PT. PT IS ON A CARB CONTROL DIABETIC DIET, PT USES A URINAL. PT IS CONTINENT TO BOTH BOWEL AND BLADDER. PT IS ON FALL PRECAUTION AND WILL CONTINUE TO MONITOR.
[2019-10-19] MEDS ORDERED: B12INJ IM (16:18)
[2019-10-19] MEDS ORDERED: MERREM1 GM IV (16:22)
[2019-10-19] MEDS ORDERED: CULTURELLE KID1 EAC1 PO (16:22)
--- NOTE | 2019-10-19 16:30 | NUR ---
on-GOING ASSESSMENT: CM REVIEWED CHART AND SPOKE WITH ATTENDING. CM SPOKE WITH LIASON FROM [facility] WHO STATES THEY RECEIVED INSURANCE AUTH AND CAN ACCEPT PATIENT TODAY. CM NOTIFIED ATTENDING. CM FAXED D.C ORDERS TO [facility] AND CONFIRMED THEY RECEIVED THEM. CM NOTIFIED PATIENT AND HIS DAUGHTER. CHART COPY WAS ORDERED AND CM NOTIFIED FILM RENTAL CLERK. CM FAXED NEGATIVE COVID TEST TO FACILITY. PT HAS POWER CHAIR HERE WITH HIM AND WILL NEED TO BE TRANSPORTED WITH HIM AT TIME OF DISCHARGE. CM NOTIFIED [facility] PATIENT WILL NEED STRETCHER FOR TRANSPORTATION. AWAITING TRANSPORTATION TIME.
[2019-10-19 22:05] VITALS: BP 97/45
--- NOTE | 2019-10-20 00:08 | NUR ---
ASSESSMENT COMPLETED. PT IS ALERT AND ORIENTED. WITH RIGHT SIDED WEAKNESS.R FOOT DRSG IN PLACE-LEG ELEVATED. PT HAD LARGE BM X 2 SO FAR-BOTTOM REDDENNED-BARRIER CRM APPLIED. PT SWALLOWS MEDS OKAY. WITH A HS BLOOD SUGAR OF 88, PT ATE SOME CRACKERS AND MILK.SCHEDULED INSULIN GIVEN.PT IS AFEBRILE.CONTINUES ON IV ABTS. NO SOA OR COUGH.CALL LIGHT WITHIN REACH.
[2019-10-20 04:25] VITALS: BP 93/43
[2019-10-20 09:04] VITALS: BP 114/78
--- NOTE | 2019-10-20 09:06 | NUR ---
Nutrition: Assessed due to LOS. S/p R fifth ray amputation on 10/11 (with osteomyelitis). On IV antibiotics. Hx: DM II, peripheral neuropathy, CHF, and pacemaker. Was supposed to discharge yesterday, now discharging today to [facility] once longer/taller bed arrives given pt's tall stature at nearly 6 ft 6 in. Pt eating 75-100% of majority of recorded meals, though no recent meal recordings done in the last 3 days. Per nursing notes, pt has been eating and drinking well. Does remain nonweight bearing on R foot d/t surgery. BGs excellently controlled at 81-95 mg/dl on 10/18, majority < 110 mg/dl this week on NPH insulin, regular insulin, metformin, and SSI. Is also on vitamin D and B12 supplements, plus Lasix and potassium. No nutrition needs identified at this time. Upcoming discharge today. Low nutrition risk.
--- NOTE | 2019-10-20 11:53 | NUR ---
PT ALERT XS 3 IS PLEASANT AND COOPERATIVE WITH CARE. PATIENT WILL DC TO SKILLED FACILITY TODAY. PT CONT ON IV ABT'S AND HAS RIGHT UPPER ARM PICC. BLOOD SUGARS MONITORED AND S/S INSULIN. PT'S BS THIS AM WAS 83 NO INSULIN GIVEN PER PATIENT.
--- NOTE | 2019-10-20 14:32 | NUR ---
on-going assessment: CM REVIEWED CHART AND SPOKE WITH LIASON AT [facility]. THEY STATE THAT PATIENT LONG BED HAS BEEN DELIVERED AND THEY CAN ACCEPT PATIENT. CM NOTIFIED ATTENDING. D/C ORDERS FAXED TO FACILITY AND CONFIRMED THEY RECEIVED IT. CHART COPY ORDERED AND [employer] HEAD FORMER AWARE. TRANSPORTATION IS ARRANGED FOR 1530. BEDSIDE RN NOTIFIED AND HAS THE NUMBER FOR REPORT. CM LEFT A VM WITH PATIENTS DAUGHTER HÉCTOR TO NOTIFY HER. CM ALSO NOTIFIED PATIENT. PTS POWERCHAIR WAS PICKED UP BY [facility]DRA AND THEY WILL HAVE IT THERE FOR THE PATIENT. PT REPORTS NO FURTHER NEEDS FROM CM PRIOR TO DISCHARGE. [id number] FORM FAXED TO FACILITY. CASE CLOSED.
--- NOTE | 2019-10-20 14:39 | NUR ---
PATIENT'S ELECTRIC W/C PICKED UP AT 14:30 BY [facility]. TAKEN TO THEIR FACILITY.
== END 2019-10-20 15:47 | DRG 617 ==
LOC: OR 06:06 → TBA 06:06 → EDSTATUS 08:58 → OR 10:20 → 4S 11:16 → OR 11:33 → 4S 10-20 15:47
PROVIDERS: Anesthesiology; Internal Medicine; Podiatrist Foot & Ankle Surgery; ADMIT Hospitalist; ATTEND Hospitalist
DX: E11.69 Type 2 diabetes mellitus with other specified complication (principal); M86.8X7 Other osteomyelitis, ankle and foot; I42.9 Cardiomyopathy, unspecified; M31.9 Necrotizing vasculopathy, unspecified; I69.351 Hemiplegia and hemiparesis following cerebral infarction affecting right dominant side; E44.1 Mild protein-calorie malnutrition; E11.51 Type 2 diabetes mellitus with diabetic peripheral angiopathy without gangrene; I48.91 Unspecified atrial fibrillation; Z20.828 Contact with and (suspected) exposure to other viral communicable diseases; E11.42 Type 2 diabetes mellitus with diabetic polyneuropathy; I50.9 Heart failure, unspecified; E78.00 Pure hypercholesterolemia, unspecified; M19.90 Unspecified osteoarthritis, unspecified site; Z87.81 Personal history of (healed) traumatic fracture; J44.9 Chronic obstructive pulmonary disease, unspecified; L97.529 Non-pressure chronic ulcer of other part of left foot with unspecified severity; Z60.2 Problems related to living alone; E66.01 Morbid (severe) obesity due to excess calories; E83.42 Hypomagnesemia; Z95.820 Peripheral vascular angioplasty status with implants and grafts; Z88.6 Allergy status to analgesic agent; Z68.35 Body mass index [BMI] 35.0-35.9, adult; Z95.0 Presence of cardiac pacemaker; Z83.3 Family history of diabetes mellitus; Z82.49 Family history of ischemic heart disease and other diseases of the circulatory system; Z89.411 Acquired absence of right great toe; Z86.19 Personal history of other infectious and parasitic diseases; Z89.412 Acquired absence of left great toe; Z87.891 Personal history of nicotine dependence
CPT/HCPCS: 10102; 27000; 50010; 50101; 50386; 50951; 56525; 57091; 62110; 62850; 70005

== ENCOUNTER → 2019-11-30 | Outpatient (CLI) | payer OTHER ==
[~2019-11-30] MED LIST changes: +B12INJ IM; +CULTURELLE KID1 EAC1 PO; +MERREM1 GM IV
== END ==
LOC: HYPER 08:28
PROVIDERS: ATTEND Emergency Medicine
DX: T81.89XA Other complications of procedures, not elsewhere classified, initial encounter (principal); E11.621 Type 2 diabetes mellitus with foot ulcer; L97.514 Non-pressure chronic ulcer of other part of right foot with necrosis of bone; E11.51 Type 2 diabetes mellitus with diabetic peripheral angiopathy without gangrene; E11.40 Type 2 diabetes mellitus with diabetic neuropathy, unspecified; L84 Corns and callosities; L60.3 Nail dystrophy; E66.01 Morbid (severe) obesity due to excess calories; E78.5 Hyperlipidemia, unspecified; I48.91 Unspecified atrial fibrillation; I10 Essential (primary) hypertension; J44.9 Chronic obstructive pulmonary disease, unspecified; K21.9 Gastro-esophageal reflux disease without esophagitis; M20.41 Other hammer toe(s) (acquired), right foot; M20.42 Other hammer toe(s) (acquired), left foot; M24.571 Contracture, right ankle; Z68.34 Body mass index [BMI] 34.0-34.9, adult; Z86.73 Personal history of transient ischemic attack (TIA), and cerebral infarction without residual deficits; Z79.84 Long term (current) use of oral hypoglycemic drugs; Z87.891 Personal history of nicotine dependence; Y92.238 Other place in hospital as the place of occurrence of the external cause; Y83.8 Other surgical procedures as the cause of abnormal reaction of the patient, or of later complication, without mention of misadventure at the time of the procedure

== ENCOUNTER → 2019-12-07 | Outpatient (CLI) | payer OTHER | LOC: HYPER 08:11 | PROVIDERS: ATTEND Emergency Medicine | DX: T81.89XD Other complications of procedures, not elsewhere classified, subsequent encounter (principal); E11.621 Type 2 diabetes mellitus with foot ulcer; L97.514 Non-pressure chronic ulcer of other part of right foot with necrosis of bone; L60.3 Nail dystrophy; E11.51 Type 2 diabetes mellitus with diabetic peripheral angiopathy without gangrene; E11.40 Type 2 diabetes mellitus with diabetic neuropathy, unspecified; E66.01 Morbid (severe) obesity due to excess calories; E78.5 Hyperlipidemia, unspecified; I48.91 Unspecified atrial fibrillation; I10 Essential (primary) hypertension; J44.9 Chronic obstructive pulmonary disease, unspecified; S98.1 Traumatic amputation of one toe; K21.9 Gastro-esophageal reflux disease without esophagitis; M20.41 Other hammer toe(s) (acquired), right foot; M20.42 Other hammer toe(s) (acquired), left foot; M24.571 Contracture, right ankle; Z86.73 Personal history of transient ischemic attack (TIA), and cerebral infarction without residual deficits; Z79.84 Long term (current) use of oral hypoglycemic drugs; Z87.891 Personal history of nicotine dependence; Z95.0 Presence of cardiac pacemaker; Z68.34 Body mass index [BMI] 34.0-34.9, adult; Y83.8 Other surgical procedures as the cause of abnormal reaction of the patient, or of later complication, without mention of misadventure at the time of the procedure ==

== ENCOUNTER → 2019-12-14 | Outpatient (CLI) | payer OTHER | LOC: HYPER 08:37 | PROVIDERS: ATTEND Emergency Medicine | DX: T81.89XD Other complications of procedures, not elsewhere classified, subsequent encounter (principal); E11.621 Type 2 diabetes mellitus with foot ulcer; L97.514 Non-pressure chronic ulcer of other part of right foot with necrosis of bone; S91.301A Unspecified open wound, right foot, initial encounter; L84 Corns and callosities; L60.3 Nail dystrophy; E66.01 Morbid (severe) obesity due to excess calories; E11.51 Type 2 diabetes mellitus with diabetic peripheral angiopathy without gangrene; E11.40 Type 2 diabetes mellitus with diabetic neuropathy, unspecified; E11.42 Type 2 diabetes mellitus with diabetic polyneuropathy; E78.5 Hyperlipidemia, unspecified; I48.91 Unspecified atrial fibrillation; I10 Essential (primary) hypertension; J44.9 Chronic obstructive pulmonary disease, unspecified; K21.9 Gastro-esophageal reflux disease without esophagitis; M20.41 Other hammer toe(s) (acquired), right foot; M20.42 Other hammer toe(s) (acquired), left foot; M24.571 Contracture, right ankle; Z68.34 Body mass index [BMI] 34.0-34.9, adult; Z86.73 Personal history of transient ischemic attack (TIA), and cerebral infarction without residual deficits; Z79.84 Long term (current) use of oral hypoglycemic drugs; Z87.891 Personal history of nicotine dependence; Z95.0 Presence of cardiac pacemaker; X58.XXXA Exposure to other specified factors, initial encounter; Y93.89 Activity, other specified; Y92.89 Other specified places as the place of occurrence of the external cause; Y99.8 Other external cause status; Y83.8 Other surgical procedures as the cause of abnormal reaction of the patient, or of later complication, without mention of misadventure at the time of the procedure ==

== ENCOUNTER → 2020-01-03 | Outpatient (CLI) | payer OTHER | LOC: HYPER 12-28 10:18 | PROVIDERS: ATTEND Emergency Medicine | DX: T81.89XD Other complications of procedures, not elsewhere classified, subsequent encounter (principal); E11.621 Type 2 diabetes mellitus with foot ulcer; L97.514 Non-pressure chronic ulcer of other part of right foot with necrosis of bone; S91.104D Unspecified open wound of right lesser toe(s) without damage to nail, subsequent encounter; S99.921D Unspecified injury of right foot, subsequent encounter; E11.51 Type 2 diabetes mellitus with diabetic peripheral angiopathy without gangrene; E11.40 Type 2 diabetes mellitus with diabetic neuropathy, unspecified; I48.91 Unspecified atrial fibrillation; E78.5 Hyperlipidemia, unspecified; I10 Essential (primary) hypertension; J44.9 Chronic obstructive pulmonary disease, unspecified; Z86.73 Personal history of transient ischemic attack (TIA), and cerebral infarction without residual deficits; Z79.84 Long term (current) use of oral hypoglycemic drugs; Z79.01 Long term (current) use of anticoagulants; Z95.0 Presence of cardiac pacemaker; Z87.891 Personal history of nicotine dependence; Z89.421 Acquired absence of other right toe(s); X58.XXXD Exposure to other specified factors, subsequent encounter; Y83.8 Other surgical procedures as the cause of abnormal reaction of the patient, or of later complication, without mention of misadventure at the time of the procedure ==

== ENCOUNTER → 2020-01-11 | Outpatient (CLI) | payer OTHER | LOC: HYPER 08:00 | PROVIDERS: ATTEND Emergency Medicine | DX: T81.89XD Other complications of procedures, not elsewhere classified, subsequent encounter (principal); E11.621 Type 2 diabetes mellitus with foot ulcer; L97.514 Non-pressure chronic ulcer of other part of right foot with necrosis of bone; S91.104D Unspecified open wound of right lesser toe(s) without damage to nail, subsequent encounter; S99.921D Unspecified injury of right foot, subsequent encounter; L60.3 Nail dystrophy; E11.51 Type 2 diabetes mellitus with diabetic peripheral angiopathy without gangrene; E11.40 Type 2 diabetes mellitus with diabetic neuropathy, unspecified; E78.5 Hyperlipidemia, unspecified; I48.91 Unspecified atrial fibrillation; I10 Essential (primary) hypertension; J44.9 Chronic obstructive pulmonary disease, unspecified; M20.41 Other hammer toe(s) (acquired), right foot; M20.42 Other hammer toe(s) (acquired), left foot; M24.571 Contracture, right ankle; Z86.73 Personal history of transient ischemic attack (TIA), and cerebral infarction without residual deficits; Z79.84 Long term (current) use of oral hypoglycemic drugs; Z79.01 Long term (current) use of anticoagulants; Z95.0 Presence of cardiac pacemaker; Z87.891 Personal history of nicotine dependence; X58.XXXD Exposure to other specified factors, subsequent encounter; Y83.8 Other surgical procedures as the cause of abnormal reaction of the patient, or of later complication, without mention of misadventure at the time of the procedure ==

== ENCOUNTER 2020-01-30 07:58 | Inpatient (IN) | payer OTHER ==
[~2020-01-30] VITALS: Ht 198.1 cm; Wt 131.8 kg
[2020-01-30] VITALS (7 sets, daily range): BP systolic 109–146; BP diastolic 38–60
--- NOTE | ~2020-01-30 | EMS ---
[address] [address] EMS Patient Care Report Name: KATIE HAUSER Room #: REG JULIANA Stout#: [id number] Admission: 01/30/20 Attend Phys: Discharge: Date of : 47 Report #: [id number] THIS REPORT FOR: //name// Report Transmitted: 01/30/2020 08:49 EMS Care Summary [place], [place]/[facility] Incident [id number] @ 01/30/2020 07:19 Incident Location [address] [place], [place] [id number] Patient KATIE HAUSER Male, 74 Years 1945 Patient Address [address] [place] [id number] Patient History Diabetes,Pacemaker/AICD, Patient Allergies Ibuprofen, Patient Medications Other, Chief Complaint GENERALLIZED WEAKNESS Disposition Transported No Lights/[place] Dispatch Reason Sick Person Transported To [facility] Narrative DISPATCHED TO A SICK. ARRIVED ON SCENE TO FIND MALE PATIENT SITTING IN HIS BED IN THE FRONT ROOM OF HIS HOUSE. HIS DAUGHTER SAID SHE CAME OVER THIS MORNING TO CHECK ON HIM AND BROWNLEE SHE FOUND HIM HE WAS HALF IN AND HALF OUT OF THE BED SO SHE AND HER SON HELPED HIM BACK INTO BED. SHE SAID HE RECENTLY HAD SURGERY TO [address] [address] EMS Patient Care Report Name: KATIE HAUSER Room #: REG JULIANA Stout#: [id number] Admission: 01/30/20 Attend Phys: Discharge: Date of : 47 Report #: [id number] REMOVE HALF OG HIS RIGHT FOOT DUE TO HAVING AN ULCER ON IT THAT WAS NOT HEALING. PATIENT SAID HE HAS BEEN FEELING WEAK FOR A COUPLE DAYS NOW AND THAT HE IS HAVING PAIN TO HIS RIGHT LEG AND HIS EARS FOR THAT SAME TIME PERIOD. HIS RIGHT LEG WAS FOUND TO BE WARM TO THE TOUCH WITH EDEMA. PATIENT SAID HE TOUGHT HE COULD STAND AND TURN TO SIT ON THE COT AND HIS DAUGHTER SAID HE COULD NORMALLY DO THAT BUT TODAY HE WAS TOO WEAK TO STAND WITH ASSISTANCE. PATIENT WAS LIFTED TO THE COT, SECURED WITH STRAPS, AND MOVED TO THE AMBULANCE. PATIENT VITALS WERE OBTAINED AND AN IV WAS ATTEMPTED. A SECOND IV WAS NOT ATTEMPTED DUE TO POOR VASCULAR TONE. HE DENIED CHEST PAIN OR DIFFICULTY BREATHING. PATIENT WAS TRANSPORTED TO THE HOSPITAL WITH VITALS MONITORED. UPON ARRIVAL AT THE HOSPITAL PATIENT WAS MOVED INTO ED ROOM 2 ON THE COT AND LIFTED OVER TO THE HOSPITAL BED. PATIENT CARE WAS TURNED OVER TO ED NURSING STAFF. Initial Vitals @07:45P: 72,BP: 140/59,SpO2: 94, @07:38P: 70,BP: 138/69,CO: 0,SpO2: 96, @07:53P: 73,R: 18,BP: 106/46,GCS: 15,SpO2: 94,Revised Trauma: 12, @07:34P: 70,R: 18,BP: 139/57,Pain: 2/10,GCS: 15,Glucose: 200,SpO2: 94,Revised Trauma: 12, Assessments @07:24MENTAL:Person Oriented,Time Oriented,Event Oriented,Place Oriented,SKIN:HEENT:Head/Face: Other,Neck/Airway: No Abnormalities,LUNG SOUNDS:General: No Abnormalities,Left Upper: No Abnormalities,Right Upper: No Abnormalities,Left Lower: No Abnormalities,Right Lower: No Abnormalities,ABDOMEN:General: No Abnormalities,Left Upper: No Abnormalities,Right Upper: No Abnormalities,Left Lower: No Abnormalities,Right Lower: No Abnormalities,PELVIS//GI:No Abnormalities,EXTREMITIES:Right Leg: Weakness,Left Leg: Weakness,Right Leg: Edema,Capillary Refill: Left Upper: < 2 Sec,Left Arm: No Abnormalities,Right Arm: No Abnormalities,PULSE:Radial: 2+ Normal,NEURO:Weakness Left-Sided,Weakness Right-Sided, Impression Generalized Weakness Procedures @07:24ALS AssessmentResponse: UnchangedSucceeded@07:35Saline Lock 0cc (20 ga) Site: Antecubital-LeftResponse: UnchangedFailed Timeline 07:17,Call Received 07:17,Dispatch Notified 07:19,Dispatched 07:20,En Route 07:22,On Scene 07:24,At Patient [address] [address] EMS Patient Care Report Name: KATIE HAUSER Room #: ALEX Stout#: [id number] Admission: 01/30/20 Attend Phys: Discharge: Date of : 47 Report #: [id number] 07:24,ALS Assessment,Response: UnchangedSucceeded, 07:34,BP: 139/57 M,PULSE: 70,RR: 18 R,SPO2: 94 Ox,ETCO2: ,B,PAIN: 2,GCS: 15, 07:35,Saline Lock 0cc 20 ga Site: Antecubital-Left,Response: UnchangedFailed, 07:38,BP: 138/69 M,PULSE: 70,RR: R,SPO2: 96 Ox,ETCO2: ,BG: ,PAIN: ,GCS: , 07:38,Depart Scene 07:45,BP: 140/59 M,PULSE: 72,RR: R,SPO2: 94 Ox,ETCO2: ,BG: ,PAIN: ,GCS: , 07:53,BP: 106/46 M,PULSE: 73,RR: 18 R,SPO2: 94 Ox,ETCO2: ,BG: ,PAIN: ,GCS: 15, 07:54,At Destination 08:04,Call Closed Disclaimer v1.1 Copyright 2020 [employer] This EMS Care Summary contains data elements from the applicable legal record (which may be displayed differently). It is designed to provide pertinent information for the following purposes: continuity of care, clinical quality, and state data reporting. The complete legal record is available to ED staff and administrators of the receiving hospital in [employer]'s Patient Tracker. All data is provided "as is."
[2020-01-30 08:29] LABS: ABSOLUTE NEUTROPHILS 14.3 thou/uL (1.4-8.2); BASOPHILS 0.2 % (0.0-2.0); HEMATOCRIT 40.1 % (42.0-52.0); HEMOGLOBIN 12.7 gm/dL (14.0-18.0); LYMPHOCYTES 8.6 % (24.0-44.0); MCH 28.1 pg (26.0-34.0); MCHC 31.7 g/dL (28.0-37.0); MCV 88.9 fL (80.0-100.0); MONOCYTES 3.7 % (1.0-8.0); PLATELET COUNT 182 thou/uL (150-400); POLYS 87.5 % (36.0-66.0); RBC 4.51 mil/uL (4.50-6.00); RDW 16.4 % (10.5-14.5); WBC 16.4 thou/uL (4.0-11.0)
[2020-01-30 08:36] LABS: CALCIUM 9.8 mg/dL (8.5-10.1); CREATININE 1.7 mg/dL (0.7-1.3)
[2020-01-30 08:37] LABS: POTASSIUM 4.9 mmol/L (3.5-5.1)
[2020-01-30 08:41] LABS: URINE BILIRUBIN NEGATIVE (Negative); URINE BLOOD 3+ (Negative); URINE CLARITY CLEAR; URINE COLOR YELLOW; URINE GLUCOSE-RANDOM* TRACE (Negative); URINE KETONES TRACE (Negative); URINE LEUKOCYTES-REFLEX NEGATIVE (Negative); URINE NITRITE-REFLEX NEGATIVE (Negative); URINE PROTEIN (DIPSTICK) 2+ (Negative); URINE SPECIFIC GRAVITY >= 1.030 (1.005-1.035); URINE UROBILINOGEN 0.2 E.U./dl (0.2-1.0)
[2020-01-30 08:42] LABS: ALBUMIN 3.5 g/dL (3.4-5.0); TOTAL BILIRUBIN 0.7 mg/dL (0.2-1.0); TOTAL PROTEIN 7.7 g/dL (6.4-8.2)
[2020-01-30 08:54] LABS: SQUAMOUS 0-3 Few /LPF (0-3)
[2020-01-30 08:55] LABS: BACTERIA-REFLEX 1-9 Few /HPF (None Seen); COARSE GRANULAR CASTS 0-3 Few /LPF (None Seen); CRYSTALS None Seen /LPF (None Seen); URINE RBC None Seen /HPF (0-2); URINE WBC-REFLEX 0-5 Rare /HPF (0-5)
--- NOTE | 2020-01-30 09:02 | EKG ---
[facility] [place] [address] ELECTROCARDIOGRAM REPORT Name: KATIE HAUSER Room #: REG [facility]#: [id number] Admission: 01/30/20 Attend Phys: Discharge: Date of : 47 Report #: [id number] THIS REPORT FOR: cc: Gerardo Roberts MD, Michael B. MD Lundgren,Anshu Bradshaw MD [facility] ~ THIS REPORT FOR: //name// [facility] ED Test Date: 2020-01-30 Test Time: 08:02:44 Pat Name: KATIE HAUSER Department: Room: Gender: M Registered Physical Therapist: [facility] : 1945 Requested By: Elyse Santiago Order Number: [id number] MD: Anshu Coffey Measurements Intervals [place] Rate: 70 P: MT: 195 QRS: -50 QRSD: 140 T: -34 QT: 447 QTc: 483 Interpretive Statements Atrial-paced complexes Left bundle branch block Baseline wander in lead(s) III,V1 Compared to ECG 10/12/2019 06:52:07 No significant change was found Electronically Signed On 01-30-2020 9:02:14 PATTERNMAKER HAND by Anshu Coffey [email or web address] <ELECTRONICALLY SIGNED> By: Anshu Coffey MD, [facility] 01/30/20901 1 1 Anshu Coffey MD, [facility] /EPI
--- NOTE | 2020-01-30 13:34 | NUR ---
NOTIFIED 4W AIDS NURSE THAT HAND OFF TOOL HAS BEEN SENT
[2020-01-30 15:46] LABS: FOLIC ACID 9.8 ng/mL (8.6-58.9)
--- NOTE | 2020-01-30 16:00 | NUR ---
Tropnin 0.[address] Carroll at 1534. Patient denied pain, no soa.
--- NOTE | 2020-01-31 04:35 | NUR ---
Assumed pt care at 1900. A/OX4,lethargic but easily arousable,febrile at HS Temp 102.9,[employer] Press Laborer notified. Orders given for NS 500ml bolus,Tylenol 650mg PRN. Administered as ordered,temp down to 99.2. RLE with cellulitis,edema and hot to touch. Wound pic/care to right lateral wound done w/o problems voiced. Fall precauitons in place. SR/Vpaced on telemetry. Resting w/o distress,will continue to monitor pt.
[2020-01-31 04:44] VITALS: BP 118/54
[2020-01-31 05:41] LABS: HEMATOCRIT 34.4 % (42.0-52.0); MCH 28.3 pg (26.0-34.0); MCHC 31.9 g/dL (28.0-37.0); MCV 88.8 fL (80.0-100.0); PLATELET COUNT 119 thou/uL (150-400); RBC 3.87 mil/uL (4.50-6.00); RDW 16.5 % (10.5-14.5); WBC 14.7 thou/uL (4.0-11.0)
[2020-01-31 06:07] LABS: CALCIUM 8.3 mg/dL (8.5-10.1); CREATININE 1.5 mg/dL (0.7-1.3); MAGNESIUM 1.8 mg/dL (1.8-2.4); POTASSIUM 4.4 mmol/L (3.5-5.1); TROPONIN-I 0.29 ng/mL (<0.06)
[2020-01-31 07:39] VITALS: BP 106/52
[2020-01-31 08:09] LABS: ABSOLUTE NEUTROPHILS 12.3 thou/uL (1.4-8.2); ANISOCYTOSIS SLIGHT; PLATELET ESTIMATE SLIGHTLY DECREASED
[2020-01-31 14:47] VITALS: BP 101/52
--- NOTE | 2020-01-31 15:41 | NUR ---
PT ADMITTED RELATED TO CELLULITIS. CM REVIEWED CHART AND SPOKE WITH CARE TEAM. CM CALLED AND SPOKE WITH PT THIS AM. PT APPEARED TO BE A&O X4. CM ROLE INTRODUCED. PT INDICATED THAT HE RESIDES IN A HOUSE ALONE WITH NO STEPS TO ENTER AND NO STEPS INSIDE. 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 PT INDICATED HE HAD BEEN ON SERVICE WITH [employer] [facility] AND THAT HE WOULD LIKE TO USE THEM AGAIN UPON DC. CM HAD SPOKE WITH [employer] THEY ARE AWARE OF HIS ADMISSION. CARDIOLOGY FOLLOWING WELL THERAPY ORDERED. CM TO FOLLOW INDICATED WITH DC PLANNING.
--- NOTE | 2020-01-31 19:22 | NUR ---
Assumed pt care at 7am.Pt in bed resting without c/o.Assessment completed.vss but temp was elevated.Dr Carroll called and order noted.Covid 19 swab done and was negative.Pt notified.New drsg change order noted.Tylenol po given this evening for elevated temp.Will continue to monitor.
[2020-01-31 20:02] VITALS: BP 110/59
[2020-02-01 05:46] LABS: HEMATOCRIT 30.6 % (42.0-52.0); HEMOGLOBIN 9.7 gm/dL (14.0-18.0); MCH 28.2 pg (26.0-34.0); MCHC 31.8 g/dL (28.0-37.0); MCV 88.7 fL (80.0-100.0); PLATELET COUNT 99 thou/uL (150-400); RBC 3.45 mil/uL (4.50-6.00); RDW 16.6 % (10.5-14.5); WBC 8.9 thou/uL (4.0-11.0)
[2020-02-01 05:52] LABS: CALCIUM 8.1 mg/dL (8.5-10.1); CREATININE 1.2 mg/dL (0.7-1.3); POTASSIUM 4.3 mmol/L (3.5-5.1)
--- NOTE | 2020-02-01 06:17 | NUR ---
Assumed pt care at 1900. A/OX4, VSS. C/o pain to RLE 09/01;order for Morphine 2mg obtained from Jessica JEONG;and adminsitered. Pt verbalized complete relief after pain meds. Cellulitis persists on RLE;pink,hot and tender to touch. Wound care to Right lateral foot done w/o problems. Pt has an external in place,patent draining yellow urine. IVF infusing via RFA w/o any problems noted. Fall precautions in place,resting w/o distress at this time. Vpaced on telemetry. Fall precautions in place.
[2020-02-01 07:52] VITALS: BP 107/47
[2020-02-01] MEDS ORDERED: ATORVASTATIN CA80 MG PO (08:41)
[2020-02-01 10:14] LABS: ABSOLUTE NEUTROPHILS 4.6 thou/uL (1.4-8.2); ANISOCYTOSIS SLIGHT; ATYPICAL LYMPHS 1 %; PLATELET ESTIMATE SLIGHTLY DECREASED; POIKILOCYTOSIS SLIGHT
--- NOTE | 2020-02-01 14:14 | 2DMMODE ---
[facility] [place] [address] 2 D/M-MODE ECHOCARDIOGRAM Name: KATIE HAUSER Linette Room #: 464-P ADM IN M.R.#: [id number] Admission: 01/30/20 Attend Phys: Puja Carroll MD Discharge: Date of : 47 Report #: [id number] THIS REPORT FOR: cc: Gerardo Roberts MD, Michael B. MD Park, Jin S. MD ~ APPROVED REPORT Study performed: 02/01/2020 13:19:01 EXAM: Comprehensive 2D, Doppler, and color-flow Echocardiogram Patient Location: Bedside Room #: 464 Status: routine BSA: 2.52 HR: 70 bpm BP: 107/47 mmHg Rhythm: Pacemaker Other Information Study Quality: Good Indications Diabetes Atrial Fibrillation Pacemaker Hypertension/HDD 2D Dimensions RVDd: 43.66 mm IVSd: 8.82 (7-11mm) LVOT Diam: 23.48 (18-24mm) LVDd: 58.18 mm PWd: 8.35 (7-11mm) Ascending Ao: 37.96 (22-36mm) LVDs: 43.31 (25-40mm) Aortic Root: 38.75 mm IVC: 32.00 mm Volumes Left Atrial Volume (Systole) Single Plane 4CH: 91.89 mL Single Plane 2CH: 89.40 mL LA ESV Index: 40.00 mL/m2 Aortic Valve AoV Peak Willie.: 1.80 m/s AO Peak Gr.: 12.89 mmHg LVOT Max P.68 mmHg [facility] [address] [place] [address] 2 D/M-MODE ECHOCARDIOGRAM Name: KATIE HAUSER Room #: 464-P [facility] IN .R.#: [id number] Admission: 01/30/20 Attend Phys: Kwaku Fernandez Discharge: Date of : 47 Report #: [id number] LVOT Max V: 0.96 m/s CARIDAD Vmax: 2.31 cm2 Mitral Valve E/A Ratio: 1.3 MV Decel. Time: 207.79 ms MV E Max Willie.: 1.05 m/s MV A Willie.: 0.80 m/s MV PHT: 60.26 ms IVRT: 78.43 ms Pulmonary Valve PV Peak Willie.: 1.19 m/s PV Peak Gr.: 5.62 mmHg Pulmonary Vein P Vein S: 0.58 m/s P Vein A: 0.24 m/s P Vein D: 0.37 m/s P Vein A Dur.: 124.6 msec P Vein S/D Ratio: 1.57 Tricuspid Valve TR Peak Willie.: 3.04 m/s TR Peak Gr.: 36.99 mmHg PA Pressure: 47.00 mmHg Left Ventricle The left ventricle is normal size. There is normal LV segmental wall motion. There is normal left ventricular wall thickness. The left ventricular systolic function is normal. The left ventricular ejection fraction is within the normal range. LVEF is 50-55%. The left ventricular diastolic function is abnormal. Right Ventricle Right ventricle is dilated. Right ventricular systolic function is grossly normal. Pacemaker lead is present in the right ventricle. Atria Left atrium is dilated. Right atrium is dilated. Pacemaker lead is present in the right atrium. Aortic Valve The aortic valve is normal in structure. No aortic regurgitation is present. There is no aortic valvular stenosis. Mitral Valve The mitral valve is normal in structure. Mild mitral regurgitation. No evidence of mitral valve stenosis. [facility] [address] [place] [address] 2 D/M-MODE ECHOCARDIOGRAM Name: KATIE HAUSER Linette Room #: 464-P ADM IN .R.#: [id number] Admission: 01/30/20 Attend Phys: Kwaku Fernandez Discharge: Date of : 47 Report #: [id number] Tricuspid Valve The tricuspid valve is normal in structure. There is mild to moderate tricuspid regurgitation. Estimated PAP 47 mmHg. There is moderate pulmonary hypertension. Pulmonic Valve The pulmonary valve is normal in structure. There is no pulmonic valvular regurgitation. Great Vessels The aortic root is normal in size. IVC is dilated and collapses <50% with inspiration. Pericardium There is no pericardial effusion. <Conclusion> The left ventricle is normal size. The left ventricular systolic function is normal. Right ventricle is dilated. Pacemaker lead is present in the right ventricle. Left atrium is dilated. The aortic valve is normal in structure. Mild mitral regurgitation. There is mild to moderate tricuspid regurgitation. Estimated PAP 47 mmHg. There is moderate pulmonary hypertension. <ELECTRONICALLY SIGNED> By: Freddy Butler MD 02/01/20 [phone] Freddy Butler MD /INF
[2020-02-01 14:54] VITALS: BP 126/54
--- NOTE | 2020-02-01 18:22 | NUR ---
PT CARE ASSUMED AT 0700. A&Ox4. LUNGS WHEEZY. DRESSING CHANGE COMPLEETED BY WOUND TEAM. PICTURE THURSDAY TAKEN AND ON CHART. DAUGHTER UPDATED ON THE PHONE. IV INFILTRATED. NEW IV PLACED. EXTERNAL CATH IN PLACE. R. SITED WEAKNESS FROM PAST CVA. ACHS. AFEBRILE THIS SHIFT. PT NOTED TO HAVE SWELLING ON THE RIGHT SIDE OF FACE FROM R. EAR DOWN TO THE CLAVICLE. TENDER TO THE TOUCH. DR. WALLACE INFORMED. NO FURTHERS ORDERS GIVEN AT THIS TIME. TYLENOL GIVEN ONCE FOR PAIN IN TOE. RESOLVED AT REASSESSMENT. NO TREMORS NOTED ON L. SIDE. NSR ON MONITOR. PACEMAKER IN PLACE ON L.CHEST. DAILY WEIGHT (CHF) FALL PROTOCOL IN PLACE. CALL LIGHT IN REACH. WILL ONTINUE TO MONITOR.
[2020-02-01 19:42] VITALS: BP 114/47
--- NOTE | 2020-02-01 20:08 | HC ---
[facility] [place] [address] CONSULTATION Name: KATIE HAUSER Room #: 464-P ADM IN M.R.#: [id number] Admission: 01/30/20 Attend Phys: Puja Carroll MD Discharge: Date of : 47 Report #: [id number] THIS REPORT FOR: cc: Gerardo Roberts MD, Michael B. MD Jameson, Stephanie L. DPM ~ LOCATION: Room #464. 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 He is status post pacemaker and has AFib. He has also had bilateral stents to his legs for arterial compromise. The patient had a history of osteomyelitis on the right foot. He underwent a partial fifth ray amputation in 09/2019 with complete removal of infected bone. He has had IV antibiotics postop. He did develop a new wound just proximal to this area postoperatively and has been having home health care dressing changes and antibiotics since then. He also has a new wound on his right third toe. He also has a lot swelling in his lower extremities, more so to the right than the left with blistering to the right leg. The patient had fallen on the ground and his daughter found him and they called EMS yesterday. He was admitted also for fevers, chills and cough and general fatigue. The patient is being seen by myself, Dr. Marie, for the right foot. LOWER EXTREMITY PHYSICAL EXAMINATION: There are no breaks in the skin or wounds to the left foot. In regards to the right foot, nonpalpable pedal pulses. Absent protective sensation to the right foot and ankle. On the right third toe, there is a dry eschar to the dorsal PIPJ measuring about 1 cm that is hard, but without surrounding edema and at the joint. He has significant contractures of right 3 and 4 toes. All other toes are absent. There is a wound down to dermis measuring 1.5 cm at the base of the fifth metatarsal. There is no obvious probing to bone, undermining or tracking. NO asbcess or fluctuance. Wound at this point today is dry without drainage. There is no surrounding edema or erythema or ascending erythema from these wounds. At the ankle joint, proximal along the anterior lower leg there are excoriations that are dry along with blistering bulbous like areas that appear lightly fluid filled. There is significant edema on the right lower extremity. No pain on palpation of right foot or ankle. LABORATORY DATA: His white blood cell count at this point is without leukocytosis. His CT scan is not showing obvious bone destruction of the areas [address] [address] CONSULTATION Name: KATIE HAUSER Room #: 464-P [facility] IN M.R.#: [id number] Admission: 01/30/20 Attend Phys: Puja Carroll MD Discharge: Date of : 47 Report #: [id number] of ulceration, right foot. ASSESSMENT AND PLAN: In regards to the right foot, recommend continuing IV antibiotics and further recs by Dr. Yeager. Wound care is consulted also to assist with healing . Vascular status has been evaluated in regard to his arteries and veins. Negative for blood clot. In regards to arterial status, plan is to continue current care without intervention. The CT scan to foot without obvious bone involvement, but due to the right lower leg extremity cellulitis, we will closely monitor for correlation. Strict instructions on rest and elevation and compression for right lower extremity. Non weight bearing status to right foot. We will continue to observe and do bedside debridement at this time. Reviewed with the patient that the patient may require amputation and further surgical debridement possibly, pending if he improves with current care. 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 Will continue to monitor. <ELECTRONICALLY SIGNED> By: Nikki Marie DPM 02/01/202007 1241 [id number] Nikki Marie DPM /bouchra
[2020-02-02 07:07] VITALS: BP 104/43
--- NOTE | 2020-02-02 08:14 | NUR ---
Assumed pt care at 1900. A/OX4,some forgetfulness noted this shift. Temp elevated at HS medicated with Tylenol and effective. Woundcare done to RLE/Foot w/o problems. Medicated for pain per EMAR. NSR/Paced on telemetry. RUE IV saline locked;IV changed per ID. Fall precautions in place,will continue to monitor pt.
[2020-02-02 08:43] LABS: HEMATOCRIT 31.6 % (42.0-52.0); HEMOGLOBIN 10.1 gm/dL (14.0-18.0); MCH 28.1 pg (26.0-34.0); MCHC 31.9 g/dL (28.0-37.0); MCV 88.1 fL (80.0-100.0); RBC 3.58 mil/uL (4.50-6.00); RDW 16.1 % (10.5-14.5); WBC 8.5 thou/uL (4.0-11.0)
[2020-02-02 08:57] LABS: APTT 28.7 Seconds (24.5-32.8); PROTIME 10.5 Seconds (9.3-11.4)
--- NOTE | 2020-02-02 12:19 | NUR ---
Case discussed with the care team. Dc timeframe uncertain. Pt is hopeful to return home with [facility] ;however he is open to SNF referral to [facility] pending the care team recommendations. Therapy is working with him and he continues on iv atb/wound care. Dc load planner to fax update to [facility] and referral to [facility]. Will follow.
--- NOTE | 2020-02-02 12:29 | NUR ---
PT ON SERVICE WITH [facility] PRIOR TO ADM FAXED UPDATE AND SPOKE WITH BERRY IN INTAKE THEY RECEIVED UPDATE AND WILL FOLLOW. PT MIGHT NEED SKILLED AT DC FAXED REFERRAL TO [facility] SPOKE WITH TARYN IN ADM SHE RECEIVED REFERRAL AND WILL REVIEW.
--- NOTE | 2020-02-02 12:52 | NUR ---
Received awake on bed. Due medications given as prescribed, able to swallow meds w/o difficulty. On room air. Vital signs stable. On heart healthy, carb controlled diet- tolerating well; no nausea, no vomiting and no abdominal pain, assisted and encouraged in eating and drinking. On blood sugar monitoring, taken and recorded accordingly. On telemetry; no complains and signs of chest pain, crushing sensation and heaviness. Hx CVA, R sided weakness, assisted in ADLs. Incontinent of bowel and bladder, with condom cath in place- output measured and recorded accordingly. Falls bundle in place. With SL at R upper arm- on IV antibiotics. With Cellulitis at R leg- kept elevated; skin intact; on IV antibiotics. Pt seen and examined by chemical processing supervisor this AM- pt for I&D this afternoon, pt to have breakfast then NPO afterwards- pt informed and aware. To continue monitoring patient.
[2020-02-02 14:54] VITALS: BP 112/47
--- NOTE | 2020-02-02 15:25 | NUR ---
Pt having toe amputation this afternoon. Referral for SNF sent to [facility] and they can accept the pt for a SNF stay at [place]. Ins auth in place. [facility] has spoke with pt's dtr as well and all parties agreeable SNF vs HH resumption will benefit the pt. [place] train planner to update [facility] on op report/neg covid test tomorrow. Al timeframe 1-2 days pending his postop progress. [facility] will have a bed over the weekend and can accept him if ready. Their oncall liason can be reached at [phone] and orders faxed to [phone]. 124c in progress.
[2020-02-02 18:31] VITALS: BP 142/64
[2020-02-02 20:03] VITALS: BP 117/45
--- NOTE | 2020-02-03 07:12 | NUR ---
VSS-AFEBRILE. C/O BILATERAL LOWER EXTREMITY PAIN, WELL RELIEVED WITH IV PAIN MEDICATION. DRESSINGS DRY AND INTACT. TURNED EVERY TWO HOURS FOR COMFORT. FALL PRECAUTIONS IN PLACE.
[2020-02-03 08:00] VITALS: BP 98/40
[2020-02-03 08:30] VITALS: BP 98/40
[2020-02-03 08:46] VITALS: BP 98/40
--- NOTE | 2020-02-03 09:17 | NUR ---
P.T. PLACED ON HOLD 02/02/20 WITH REQUEST FOR NEW POST OP P.T. ORDERS ONCE PT IS MEDICALLY STABLE. REQUEST UPDATE ON WEIGHTBEARING STATUS.
--- NOTE | 2020-02-03 10:09 | NUR ---
he will need pt ot resume orders when md say ok to work with therapy again. trying for skilled at [facility] . 124c completed and faxed to [facility]. form placed in chart copy. will cont following as needed for dc needs.
[2020-02-03 10:28] LABS: HEMATOCRIT 30.6 % (42.0-52.0); HEMOGLOBIN 9.8 gm/dL (14.0-18.0); MCH 28.1 pg (26.0-34.0); MCV 87.8 fL (80.0-100.0); RBC 3.49 mil/uL (4.50-6.00); RDW 15.7 % (10.5-14.5); WBC 8.5 thou/uL (4.0-11.0)
[2020-02-03 10:48] LABS: CALCIUM 8.5 mg/dL (8.5-10.1); POTASSIUM 3.9 mmol/L (3.5-5.1)
--- NOTE | 2020-02-03 14:44 | NUR ---
anticipated dc thursday or over the weekend [facility]. send chart copy,. da 124 c already faxed over. bedside nurse call jason # [phone], set up dc. yola cuevas fax dc order to [phone] bedside nurse call report to [phone]
--- NOTE | 2020-02-03 16:15 | NUR ---
FAXED CLINICAL UPDATE TO [facility] RECEIVED CONFIRMATION AND LEFT MSG WITH TARYN IN ADM. DP TO FOLLOW.
[2020-02-03 19:52] VITALS: BP 99/42
--- NOTE | 2020-02-03 22:04 | NUR ---
ASSUMED CARE OF PT AT 0700. PT IS A&OX4 AND VITAL SIGNS ARE STABLE. DRESSING TO RLE CHANGED PER ORDERS THIS SHIFT. PT REPORTS PAIN TO RLE, MANAGE WITH PO AND IV MEDICATIONS. ACCU CHECKS ACHS. PT REPORTS NO BM FOR SEVERAL DAYS, BUT DENIES DISCOMFORT. MIRALAX ADMINISTERED IN EVENING. DAUGHTER AT BEDSIDE THIS EVEINING AND WOULD LIKE TO HAVE THE MIRALAX SCHEDULED IF POSSIBLE PT TAKES IT REGULARLY AT HOME, AND WOULD ALSO LIKE AN UPDATE FROM ID WHEN THEY NEXT ROUND ON PT. EXPRESSED DAUGHTERS WISHES TO ONCOMING NURSE. RIGHT UPPER ARM IV PATENT AND SALINE LOCKED AT THIS TIME. FALL PRECAUTIONS IN PLACE. NURSING WILL CONTINUE TO MONITOR.
--- NOTE | 2020-02-04 02:51 | NUR ---
PT CARE ASSUMED WITH PT IN BED WATCHING TV.PT IS A/O X4.PT IS ON BEDREST.PT IS ACCUCHECKS ACHS .PT DRESSING ON RT FOOT D/C/I.PT IS ON O2 NC .MIRALAX GIVEN PT DEMAND .IV ACCESS ON GERMAN SL.WILL CONTINUE TO MONITOR PER POC
[2020-02-04 07:36] VITALS: BP 101/46
[2020-02-04 14:21] VITALS: BP 109/50
--- NOTE | 2020-02-04 15:47 | NUR ---
Assumed pt care at 7am.Pt in bed most of the time today.Assessment completed. vss.Pt wanted to dc home today if possibly. Rn informed pt that he has to wait till Dr make decision.Pt eat breakfast and tolerated meds but refused lunch. Dr Cantu and Carly here,order noted.Pt sleeping in bed withoutnc/o.Will continue to monitor.
[2020-02-04 20:02] VITALS: BP 110/44
--- NOTE | 2020-02-05 06:33 | NUR ---
PT CARE ASSUMED WITH PT IN BED.PT IS A/O X4.PT IS ACCUCHECK ACHS.PT APPEARED TO BE IN NO DISTRESS.WOUND DRESSING INTACT.STAFF ASK TO REPOSITION PT BUT PT REFUSED.PT LOWER EXTREMITY ELEVATED .PT USES URINAL .WILL CONTINUE TO MONITOR PER POC
[2020-02-05 08:43] VITALS: BP 103/43
[2020-02-05 16:59] VITALS: BP 124/69
[2020-02-05 19:41] VITALS: BP 109/57
--- NOTE | 2020-02-05 20:13 | NUR ---
Assumed pt care at 7am.Pt in bed alert and oriented x4. Assessment completed. vss.Pt in bed for breakfast and took all am med without difficulty.At noon,pt refused lunch,stated that he wanted to watch football.Drsg change done to rt foot as ordered.Pt has large formed stool around 11am.Later this evening,Dr Yeager rounded on pt and elevated bilateral lower extremities to reduce swelling.Pt was very upset and called his dtr.Unit sec picked up pt dtr's call when calling for comfirmation.Kerrie ndiaye nsg marketing sales supervisor for the day came to the unit to inform this rn that she received call from pt's dtr.Pain shot given with relief.Pt voided approx. 2000ml yellow urine today with 2 bm.Will continue to monitor.
--- NOTE | 2020-02-06 02:19 | NUR ---
ASSUMED CARE OF PT AT 1900HRS. PT AOX4 AND LETS NEEDS BE KNOWN. FALL PRECAUTION IN PLACE. PT DENIED PAIN, NAUSEA OR SOA. PT WAS INCT OF BOWEL THIS SHIFT. ABX TREATMENT CONTINUED. RLE ELEVATED ON TWO PILLOWS. PT TURNED Q2-3H. ASSESSMENT CHARTED. PT WAS ABLE TO GET COMFORTABLE AND SLEEP PART OF THE SHIFT. VSS AND NO S/S OF ACUTE DISTRESSED. PT IS A-PACED ON TELE. WILL CONTINUE TO MONITOR.
[2020-02-06 04:04] VITALS: BP 118/43
[2020-02-06] MEDS ORDERED: NITROGLYCERIN0.4 MG SUBLING (11:23)
[2020-02-06] MEDS ORDERED: AMMONIUM LACTA226 GM TOP (11:23)
[2020-02-06] MEDS ORDERED: CEFAZOLIN2 GM/20 M1 IV (11:23)
[2020-02-06] MEDS ORDERED: HUMALOG100 UNIT/1 SUBQ (11:23)
[2020-02-06] MEDS ORDERED: PROTONIX 20 MG20 M1 PO (11:23)
[2020-02-06] MEDS ORDERED: COREG6.25 MG PO (11:23)
[2020-02-06] MEDS ORDERED: DOXYCYCLINE HY100 M3 PO (11:23)
[2020-02-06] MEDS ORDERED: KEFLEX500 M1 PO (11:54)
--- NOTE | 2020-02-06 14:00 | NUR ---
FAXED CLINICAL UPDATE TO [facility] SPOKE WITH TARYN IN AMD SHE RECEIVED UPDATE. DP TO FOLLOW.
--- NOTE | 2020-02-06 16:08 | NUR ---
CARE TEAM INDICATED THAT PT IS MEDICALLY STABLE TO DC TO [facility] SKILLED THIS DAY. FACILITY INDICATED THAT THEY NEEDED REPEAT COVID TEST PRIOR TO ADMIT PT'S LAST TEST WAS ON 01/31/20. TEST COLLECTED SENT OUT ON 1600 RUN AWAITING RESULTS. CM UPDATED LIAISON. SHE CALLED AND STATED THAT [facility] WAIVER FOR AUTH TODAY AND THEY THEY HADN'T RENEWED IT. SHE INDICATED THAT THEY HAD RESUBMITTED FOR AUTH AND THAT [employer] NURSE WAS REVIEWING IT. HOPEFULL THAT WE WILL GET AUTH AND COVID TEST RESULTS BACK TO TOMORROW AND PT CAN DC TO [facility]. CM TO FOLLOW INDICATED WITH DC PLANNING.
[2020-02-06 16:59] VITALS: BP 135/48
--- NOTE | 2020-02-06 20:09 | NUR ---
ASSUMED CARE AT 0700. ASSESSMENT PER CHART. PT PROGRESSING TOWARDS POC GOALS. REMAINS ON IV ATBX FOR CELLUILITS OF RLE. FOOT AND LEG REWRAPPED THIS MORNING WITH DR SCHUSTER. ALON RESTARTED PER CARDIOLOGY. PT TO DC TO [facility] POSSIBLY TOMORROW IF AUTH IS OBTAINED AND COVID TEST RESULTS ARE BACK. PT UPDATED. DTR UPDATED BY DR WALLACE AND REAL.
[2020-02-06 20:47] VITALS: BP 136/50
--- NOTE | 2020-02-07 06:40 | NUR ---
ASSUMED CARE OF PT AT 1900HRS. PT AOX4 AND LETS NEEDS BE KNOWN. FALL PRECAUTION IN PLACE. PT DENIES PAIN, NAUSEA OR SOA. RLE ELEVATED. PT IS AV PACED ON TELE. ABX TREATMENT CONTINUED. ORDER FOR PICC LINE PRIOR TO DC. PT WAS ABLE TO GET COMFORTABLE AND SLEEP PART OF THE SHIFT. VSS AND NO S/S OF ACUTE DISTRESS. WILL CONTINUE TO MONITOR.
[2020-02-07 08:48] VITALS: BP 132/49
--- NOTE | 2020-02-07 09:04 | NUR ---
Assess for lenght of stay. Admit with cellulitis and s/p toes ampuations and lateral foot amputation. Hx DM, CVA, HTN. Visit with pt and states good appetite. BMI 33 obese. BG under good control. Likely discharge soon. Low nutrition risk
--- NOTE | 2020-02-07 12:03 | NUR ---
VASCULAR ACCESS CONSULTED FOR PICC PLACEMENT DISCUSSED BENEFITS AND RISK OF PICC WITH PT, VERBALIZED UNDERSTANDING. GERMAN BASILIC WAS WIDELY PATENT WITH USG. SL POWER PICC TRIMMED TO 42CM INSERTED TO 2CM EXTERNAL.PT TOLERATED WELL. CXR ORDERED
--- NOTE | 2020-02-07 12:59 | NUR ---
CXR SHOWS PICC UP RIJ, UNABLE TO REPOSITION, NEW KIT OBTAINED TRIMMED TO 42CM, DID OTW EXCHANGE. INSERTED TO 2CM EXTERNAL. PT TOLERATED WELL. CXR STAT ORDERED
[2020-02-07] MEDS ORDERED: VANCOMYCIN1 GM/2002 IV (13:13)
[2020-02-07] MEDS ORDERED: ACETAMINOPHEN325 M1 PO (13:13)
[2020-02-07] MEDS ORDERED: CEFAZOLIN2 GM/100 M IV (13:13)
[2020-02-07] MEDS ORDERED: ACIDOPHILUS1 EAC4 PO (13:13)
--- NOTE | 2020-02-07 14:46 | NUR ---
2ND CXR STILL UP RIJ, POWER FLUSHED REPOSITIONED AND 3RD CXR OBTAINED
--- NOTE | 2020-02-07 14:51 | NUR ---
3RD CXR CONFIRMED PICC IN DISTAL SVC. RELEASED FOR IMMEDIATE USE PER PROTOCOL TO KATHARINE BRADFORD
--- NOTE | 2020-02-07 15:30 | NUR ---
CARE TEAM INDICATED THAT PT IS MEDICALLY STABLE TO DC TO [facility] SKILLED THIS DAY. [employer] WAIVED AUTH UNTIL 02/22. PT HAD PICC PLACED FOR IV ABX UPON DC. [facility] ARRANGED FOR [id number]. PT AND DTR ARE AWARE AND AGREEABLE. CHART COPY MADE. ORDERS FAXED. NURSE HAS NUMBER FOR REPORT. NO OTHER CM INTERVENTION INDICATED. CASE CLOSED.
[2020-02-07 16:30] VITALS: BP 149/52
--- NOTE | 2020-02-07 20:04 | NUR ---
Received awake on bed. Due medications given as prescribed, able to swallow meds w/o difficulty. On room air. Vital signs stable. On telemetry; no signs and complains of chest pain, crushing sensation and heaviness; with pacemaker. On carb controlled diet- tolerating well; no nausea, no vomiting and no abdominal pain noted; on blood sugar monitoring, taken and recorded accordingly. Continent of bowel and bladder, able to use urinal, checked regularly and changed as needed. With R leg cellulitis- dressing in place; discharge wound photo done; dressing changed today. With SL at R FA- on IV antibiotics- discontinued; PICC line placed at R upper arm by IV nurse as per protocol; consent signed; placement verified. No complains of pain made the whole shift. Pt seen and examined by Dr Paris; discharge instructions and follow up schedule given as prescribed. Telemetry stopped; monitor returned. Pt's daughter visited this PM, update given. Pt fetched by [facility]port staff; chart copy given. Report given to [facility] [place] [facility]; informed re: PICC line care and meds to be given.
--- NOTE | 2020-02-08 08:49 | HC ---
[facility] [place] [address] CONSULTATION Name: KATIE HAUSER Room #: 464-P [facility] IN M.R.#: [id number] Admission: 01/30/20 Attend Phys: Puja Carroll MD Discharge: 02/07/20 Date of : 47 Report #: [id number] THIS REPORT FOR: cc: Gerardo Roberts MD,Gerardo Grove,Rafiq Zhang MD ~ DATE OF SERVICE: 01/30/2020 CHIEF COMPLAINT: Surgical wound to the foot. HISTORY OF PRESENT ILLNESS: This is a 74-year-old male patient with a history of hyperlipidemia, diabetes with peripheral neuropathy, was admitted for right lower extremity cellulitis. He has a history of osteomyelitis to the right fifth metatarsal status post ray amputation 10/12/2019, has had ongoing antibiotic therapy. He has been followed by Dr. Nikki Marie. I have been asked to see him with regard to ongoing wound care. PAST MEDICAL HISTORY: Positive for history of tuberculosis, high cholesterol, hypertension, atrial fibrillation, right wrist fracture, hepatitis C, diabetes with peripheral neuropathy. He is a previous alcoholic. He is a past smoker. History of peripheral vascular disease, cardiomyopathy and atrial fibrillation. He has undergone bilateral great toe and left second toe amputation, previous cerebrovascular accident, peripheral arterial disease status post previous stenting, osteomyelitis of the right second toe status post amputation. He has a history of a dual-chamber pacemaker implanted in 03/2019. SOCIAL HISTORY: The patient is a previous smoker, previously has consumed alcohol. FAMILY HISTORY: Noncontributory. MEDICATIONS: Include aspirin, meropenem, Eliquis, Colace, Novolin insulin, Proscar, Klor-Con, GlycoMax, Zocor, Zestril, Lasix Glucophage, Nyamyc, Flomax, Coreg, Pacerone. ALLERGIES: IBUPROFEN. REVIEW OF SYSTEMS: CONSTITUTIONAL: The patient denies fever, chills or weight loss. NEUROLOGICAL: The patient denies focal weakness, numbness, tingling. Does complain of peripheral neuropathy. ENT: The patient denies earache, nasal drainage, sore throat. CARDIOVASCULAR: The patient denies chest pain, palpitations or diaphoresis. PULMONARY: The patient denies cough or shortness of breath. GASTROINTESTINAL: The patient denies nausea, vomiting, diarrhea or abdominal [address] [address] CONSULTATION Name: ANALISAKATIE Room #: 464-P [facility] IN .R.#: [id number] Admission: 01/30/20 Attend Phys: Puja Carroll MD Discharge: 02/07/20 Date of : 47 Report #: [id number]. ORTHOPEDIC: The patient has surgical wounds to the right foot with ulceration on the right third toe. LABORATORY DATA: Include sodium 137, potassium 4.9, chloride 101, CO2 of 26, BUN 24, creatinine 1.7, glucose 187. Albumin 3.5. White blood cell count 16.4 with a hemoglobin of 12.7. CLINICAL IMPRESSION: 1. Vascular ulceration of the right third toe, status post previous fifth ray resection, 10/12/2019. 2. Type 2 diabetes mellitus. 3. History of atrial fibrillation. 4. History of congestive heart failure. 5. Chronic obstructive pulmonary disease. 6. History of heavy alcohol and tobacco use. 7. Mild protein-calorie malnutrition. RECOMMENDATIONS: At this point in time, we will just recommend observation of the fifth ray resection site and elevate the lower extremity to control edema. Walton the right third toe ulcer with Betadine daily. Dakin's moist gauze and Kerlix to the right lateral foot ulceration. Medical management of his atrial fibrillation, congestive heart failure, COPD and diabetes mellitus. He will need ongoing nutritional support to maximize wound healing. I appreciate being asked to see him in consultation. <ELECTRONICALLY SIGNED> By: Rafiq Grove MD 02/08/20 0849 [id number] [id number] Rafiq Grove MD /nt
== END 2020-02-07 17:51 | DRG 853 ==
LOC: ER 07:58 → EROBS 11:57 → 4W 11:57
PROVIDERS: Emergency Medicine; Nurse Practitioner; Podiatrist Foot & Ankle Surgery; Specialist; ADMIT Hospitalist; ATTEND Hospitalist
PROC: 0Y6V0Z1 Detachment at Right 4th Toe, High, Open Approach (ICD-10-PCS; principal; 2020-02-02)
PROC: 0Y6T0Z0 Detachment at Right 3rd Toe, Complete, Open Approach (ICD-10-PCS; principal; 2020-02-02)
PROC: B548ZZA Ultrasonography of Superior Vena Cava, Guidance (ICD-10-PCS; principal; 2020-02-02)
PROC: 0L8N0ZZ Division of Right Lower Leg Tendon, Open Approach (ICD-10-PCS; principal; 2020-02-02)
PROC: 02HV33Z Insertion of Infusion Device into Superior Vena Cava, Percutaneous Approach (ICD-10-PCS; 2020-02-07)
DX: A41.9 Sepsis, unspecified organism (principal); G93.41 Metabolic encephalopathy; I50.33 Acute on chronic diastolic (congestive) heart failure; L03.115 Cellulitis of right lower limb; N17.9 Acute kidney failure, unspecified; I42.9 Cardiomyopathy, unspecified; E44.1 Mild protein-calorie malnutrition; I48.20 Chronic atrial fibrillation, unspecified; I69.351 Hemiplegia and hemiparesis following cerebral infarction affecting right dominant side; I13.0 Hypertensive heart and chronic kidney disease with heart failure and stage 1 through stage 4 chronic kidney disease, or unspecified chronic kidney disease; E11.621 Type 2 diabetes mellitus with foot ulcer; Z20.828 Contact with and (suspected) exposure to other viral communicable diseases; E78.00 Pure hypercholesterolemia, unspecified; M19.90 Unspecified osteoarthritis, unspecified site; E11.40 Type 2 diabetes mellitus with diabetic neuropathy, unspecified; E11.51 Type 2 diabetes mellitus with diabetic peripheral angiopathy without gangrene; Z95.820 Peripheral vascular angioplasty status with implants and grafts; J44.9 Chronic obstructive pulmonary disease, unspecified; R65.20 Severe sepsis without septic shock; E86.0 Dehydration; E78.5 Hyperlipidemia, unspecified; E11.42 Type 2 diabetes mellitus with diabetic polyneuropathy; N40.0 Benign prostatic hyperplasia without lower urinary tract symptoms; E66.9 Obesity, unspecified; L97.519 Non-pressure chronic ulcer of other part of right foot with unspecified severity; Z60.2 Problems related to living alone; K59.00 Constipation, unspecified; N18.9 Chronic kidney disease, unspecified; D64.9 Anemia, unspecified; Z86.19 Personal history of other infectious and parasitic diseases; Z79.4 Long term (current) use of insulin; Z89.412 Acquired absence of left great toe; Z89.411 Acquired absence of right great toe; Z88.6 Allergy status to analgesic agent; Z95.5 Presence of coronary angioplasty implant and graft; Z95.0 Presence of cardiac pacemaker; Z87.891 Personal history of nicotine dependence; Z68.33 Body mass index [BMI] 33.0-33.9, adult; Z86.11 Personal history of tuberculosis
CPT/HCPCS: 10045; 27000; 50010; 50101; 50386; 56525; 57091; 57180; 62110; 62900

== ENCOUNTER 2020-02-20 11:44 | Emergency (ER) | payer OTHER ==
[~2020-02-20] VITALS: Ht 198.1 cm; Wt 128.4 kg
[~2020-02-20 11:44] MED LIST changes: +ACETAMINOPHEN325 M1 PO; +ACIDOPHILUS1 EAC4 PO; +AMMONIUM LACTA226 GM TOP; +ATORVASTATIN CA80 MG PO; +CEFAZOLIN2 GM/100 M IV; +CEFAZOLIN2 GM/20 M1 IV; +COREG6.25 MG PO; +DOXYCYCLINE HY100 M3 PO; +HUMALOG100 UNIT/1 SUBQ; +KEFLEX500 M1 PO; +NITROGLYCERIN0.4 MG SUBLING; +PROTONIX 20 MG20 M1 PO; +VANCOMYCIN1 GM/2002 IV
--- NOTE | 2020-02-20 13:33 | EKG ---
[place] [address] [facility] [place] [address] ELECTROCARDIOGRAM REPORT Name: KATIE HAUSER [id number] Admission: 02/20/20 Attend Phys: Discharge: Date of : 47 Report #: [id number] [facility] ED Test Date: 2020-02-20 Test Time: 11:53:23 Pat Name: KATIE HAUSER Department: Room: Gender: Qa Analyst: GUILLERMINA : 1945 Requested By: Alber Murrieta Order Number: [id number] MD: Jorge Arellano Measurements Intervals [facility] Rate: 70 P: GA: 184 QRS: -58 QRSD: 132 T: 76 QT: 435 QTc: 470 Interpretive Statements Atrial-paced rhythm Left bundle branch block Compared to ECG 01/30/2020 08:02:44 No significant changes Electronically Signed On 02-20-2020 13:32:50 SPECIAL EFFECTS TECHNICIAN by Jorge Arellano [email or web address] <ELECTRONICALLY SIGNED> By: Jorge Arellano MD, [facility] 02/20/20 1332 1153 1153 Jorge Arellano MD, FACC /EPI
[2020-02-20 14:53] LABS: ABSOLUTE NEUTROPHILS 4.7 thou/uL (1.4-8.2); BASOPHILS 0.4 % (0.0-2.0); EOSINOPHILS 3.9 % (0.0-3.0); HEMATOCRIT 35.6 % (42.0-52.0); HEMOGLOBIN 11.1 gm/dL (14.0-18.0); LYMPHOCYTES 16.3 % (24.0-44.0); MCH 27.1 pg (26.0-34.0); MCHC 31.2 g/dL (28.0-37.0); MCV 86.7 fL (80.0-100.0); MONOCYTES 8.5 % (1.0-8.0); PLATELET COUNT 200 thou/uL (150-400); POLYS 70.9 % (36.0-66.0); RDW 15.2 % (10.5-14.5); WBC 6.6 thou/uL (4.0-11.0)
[2020-02-20 15:01] LABS: ANION GAP 5 mmol/L (7-16); BUN 15 mg/dL (7-18); CALCIUM 8.6 mg/dL (8.5-10.1); CHLORIDE 100 mmol/L (98-107); CO2 35 mmol/L (21-32); CREATININE 1.1 mg/dL (0.7-1.3); GLUCOSE 144 mg/dL (74-106); POTASSIUM 3.7 mmol/L (3.5-5.1); SODIUM 140 mmol/L (136-145)
[2020-02-20 15:11] LABS: ALBUMIN 2.6 g/dL (3.4-5.0); SGOT 32 U/L (15-37); SGPT 14 U/L (16-63); TOTAL BILIRUBIN 0.4 mg/dL (0.2-1.0); TOTAL PROTEIN 6.8 g/dL (6.4-8.2); TROPONIN-I <0.06 ng/mL (<0.06)
[2020-02-20 16:05] LABS: URINE BILIRUBIN NEGATIVE (Negative); URINE BLOOD NEGATIVE (Negative); URINE CLARITY CLEAR; URINE COLOR YELLOW; URINE GLUCOSE-RANDOM* NEGATIVE (Negative); URINE KETONES TRACE (Negative); URINE LEUKOCYTES-REFLEX NEGATIVE (Negative); URINE NITRITE-REFLEX NEGATIVE (Negative); URINE PROTEIN (DIPSTICK) 1+ (Negative); URINE SPECIFIC GRAVITY 1.015 (1.005-1.035); URINE UROBILINOGEN 0.2 E.U./dl (0.2-1.0)
[2020-02-20 16:24] LABS: BACTERIA-REFLEX 1-9 Few /HPF (None Seen); CASTS None Seen /LPF (None Seen); CRYSTALS None Seen /LPF (None Seen); SQUAMOUS 0-3 Few /LPF (0-3); URINE RBC None Seen /HPF (0-2); URINE WBC-REFLEX None Seen /HPF (0-5)
[2020-02-20 19:06] VITALS: BP 110/40
== END 2020-02-20 19:07 ==
LOC: ER 11:44
PROVIDERS: Emergency Medicine
DX: U07.1 COVID-19 (principal); R07.9 Chest pain, unspecified; J44.9 Chronic obstructive pulmonary disease, unspecified; E11.9 Type 2 diabetes mellitus without complications; I42.9 Cardiomyopathy, unspecified; D68.318 Other hemorrhagic disorder due to intrinsic circulating anticoagulants, antibodies, or inhibitors; I11.0 Hypertensive heart disease with heart failure; I50.9 Heart failure, unspecified; E78.5 Hyperlipidemia, unspecified; I48.91 Unspecified atrial fibrillation; Z95.0 Presence of cardiac pacemaker; Z79.2 Long term (current) use of antibiotics; Z79.899 Other long term (current) drug therapy; Z87.891 Personal history of nicotine dependence; Z88.8 Allergy status to other drugs, medicaments and biological substances

== ENCOUNTER → 2020-07-03 | Outpatient (CLI) | payer OTHER | LOC: HYPER 07:38 | PROVIDERS: ATTEND Specialist | DX: E11.621 Type 2 diabetes mellitus with foot ulcer (principal); L97.511 Non-pressure chronic ulcer of other part of right foot limited to breakdown of skin; L60.3 Nail dystrophy; E11.51 Type 2 diabetes mellitus with diabetic peripheral angiopathy without gangrene; E11.40 Type 2 diabetes mellitus with diabetic neuropathy, unspecified; E78.5 Hyperlipidemia, unspecified; E66.9 Obesity, unspecified; I48.91 Unspecified atrial fibrillation; I10 Essential (primary) hypertension; J44.9 Chronic obstructive pulmonary disease, unspecified; K21.9 Gastro-esophageal reflux disease without esophagitis; M20.42 Other hammer toe(s) (acquired), left foot; M24.571 Contracture, right ankle; Z86.73 Personal history of transient ischemic attack (TIA), and cerebral infarction without residual deficits; Z68.34 Body mass index [BMI] 34.0-34.9, adult; Z79.84 Long term (current) use of oral hypoglycemic drugs; Z87.891 Personal history of nicotine dependence; Z95.0 Presence of cardiac pacemaker ==

== ENCOUNTER → 2020-07-17 | Outpatient (CLI) | payer OTHER | LOC: HYPER 13:14 | PROVIDERS: ATTEND Emergency Medicine | DX: E11.621 Type 2 diabetes mellitus with foot ulcer (principal); L97.511 Non-pressure chronic ulcer of other part of right foot limited to breakdown of skin; L84 Corns and callosities; L60.3 Nail dystrophy; E11.51 Type 2 diabetes mellitus with diabetic peripheral angiopathy without gangrene; E11.40 Type 2 diabetes mellitus with diabetic neuropathy, unspecified; E78.5 Hyperlipidemia, unspecified; E66.9 Obesity, unspecified; I48.91 Unspecified atrial fibrillation; I10 Essential (primary) hypertension; J44.9 Chronic obstructive pulmonary disease, unspecified; K21.9 Gastro-esophageal reflux disease without esophagitis; M20.42 Other hammer toe(s) (acquired), left foot; M24.571 Contracture, right ankle; Z86.73 Personal history of transient ischemic attack (TIA), and cerebral infarction without residual deficits; Z68.34 Body mass index [BMI] 34.0-34.9, adult; Z79.84 Long term (current) use of oral hypoglycemic drugs; Z87.891 Personal history of nicotine dependence; Z95.0 Presence of cardiac pacemaker ==

== ENCOUNTER → 2020-09-28 | Outpatient (CLI) | payer OTHER | LOC: RAD 11:18 | PROVIDERS: ATTEND Podiatrist Foot & Ankle Surgery | DX: L97.511 Non-pressure chronic ulcer of other part of right foot limited to breakdown of skin (principal); Z89.421 Acquired absence of other right toe(s) ==

== ENCOUNTER → 2020-09-28 | Outpatient (CLI) | payer OTHER | LOC: HYPER 08:21 | PROVIDERS: ATTEND Emergency Medicine | DX: T81.89XD Other complications of procedures, not elsewhere classified, subsequent encounter (principal); E11.621 Type 2 diabetes mellitus with foot ulcer; L97.512 Non-pressure chronic ulcer of other part of right foot with fat layer exposed; E11.51 Type 2 diabetes mellitus with diabetic peripheral angiopathy without gangrene; E11.40 Type 2 diabetes mellitus with diabetic neuropathy, unspecified; E11.610 Type 2 diabetes mellitus with diabetic neuropathic arthropathy; G83.9 Paralytic syndrome, unspecified; C43.39 Malignant melanoma of other parts of face; L60.3 Nail dystrophy; M20.42 Other hammer toe(s) (acquired), left foot; M24.571 Contracture, right ankle; I48.91 Unspecified atrial fibrillation; E78.5 Hyperlipidemia, unspecified; J44.9 Chronic obstructive pulmonary disease, unspecified; E66.9 Obesity, unspecified; Z68.34 Body mass index [BMI] 34.0-34.9, adult; Z86.73 Personal history of transient ischemic attack (TIA), and cerebral infarction without residual deficits; Z87.01 Personal history of pneumonia (recurrent); Z87.891 Personal history of nicotine dependence; Z95.0 Presence of cardiac pacemaker; Z79.84 Long term (current) use of oral hypoglycemic drugs; Z98.890 Other specified postprocedural states; Z79.01 Long term (current) use of anticoagulants; Z79.899 Other long term (current) drug therapy; Y83.8 Other surgical procedures as the cause of abnormal reaction of the patient, or of later complication, without mention of misadventure at the time of the procedure ==

== ENCOUNTER → 2021-01-10 | Outpatient (CLI) | payer OTHER | LOC: HYPER 14:53 | PROVIDERS: ATTEND Emergency Medicine | DX: E11.621 Type 2 diabetes mellitus with foot ulcer (principal); L97.412 Non-pressure chronic ulcer of right heel and midfoot with fat layer exposed; L97.512 Non-pressure chronic ulcer of other part of right foot with fat layer exposed; E11.51 Type 2 diabetes mellitus with diabetic peripheral angiopathy without gangrene; E11.42 Type 2 diabetes mellitus with diabetic polyneuropathy; M24.571 Contracture, right ankle; L84 Corns and callosities; I48.91 Unspecified atrial fibrillation; E78.5 Hyperlipidemia, unspecified; I10 Essential (primary) hypertension; J44.9 Chronic obstructive pulmonary disease, unspecified; Z86.73 Personal history of transient ischemic attack (TIA), and cerebral infarction without residual deficits; Z87.01 Personal history of pneumonia (recurrent); Z95.0 Presence of cardiac pacemaker; G83.9 Paralytic syndrome, unspecified; Z87.891 Personal history of nicotine dependence; Z79.84 Long term (current) use of oral hypoglycemic drugs; Z79.01 Long term (current) use of anticoagulants; Z79.899 Other long term (current) drug therapy; Z89.421 Acquired absence of other right toe(s); Z89.422 Acquired absence of other left toe(s) ==